=== PATIENT | female | born 1940 | race Caucasian/White ===

== ENCOUNTER → 2019-06-06 11:19 | Outpatient (BNVA) | payer MEDICARE, SELFPAY | PROVIDERS: Family Provider Family Medicine; PCP Family Medicine; Visit Provider Family Medicine | DX: E03.9 Hypothyroidism, unspecified (principal); I50.9 Heart failure, unspecified | CPT/HCPCS: 80162; 84443 ==

== ENCOUNTER → 2019-12-18 10:03 | Outpatient (BNVA) | payer MEDICARE, SELFPAY | PROVIDERS: Family Provider Internal Medicine; PCP Family Medicine; Visit Provider Family Medicine | DX: E03.9 Hypothyroidism, unspecified (principal); F41.1 Generalized anxiety disorder | CPT/HCPCS: 84443 ==

== ENCOUNTER → 2020-02-27 10:29 | Outpatient (BNVA) | payer MEDICARE, SELFPAY | PROVIDERS: Family Provider Internal Medicine; PCP Family Medicine; Visit Provider Family Medicine | DX: E03.9 Hypothyroidism, unspecified (principal); I50.9 Heart failure, unspecified | CPT/HCPCS: 84443 ==

== ENCOUNTER → 2020-04-03 08:55 | Outpatient (BNVA) | payer MEDICARE, SELFPAY | PROVIDERS: Family Provider Internal Medicine; PCP Family Medicine; Visit Provider Social Worker | DX: F41.1 Generalized anxiety disorder (principal) | CPT/HCPCS: 90834 ==

== ENCOUNTER → 2020-04-17 09:17 | Outpatient (BNVA) | payer MEDICARE, SELFPAY | PROVIDERS: Family Provider Internal Medicine; PCP Family Medicine; Visit Provider Social Worker | DX: F41.1 Generalized anxiety disorder (principal) | CPT/HCPCS: 90834 ==

== ENCOUNTER → 2020-05-01 09:07 | Outpatient (BNVA) | payer MEDICARE, SELFPAY | PROVIDERS: Family Provider Internal Medicine; PCP Family Medicine; Visit Provider Social Worker | DX: F41.1 Generalized anxiety disorder (principal) | CPT/HCPCS: 90834 ==

== ENCOUNTER → 2020-05-15 08:25 | Outpatient (BNVA) | payer MEDICARE, SELFPAY | PROVIDERS: Family Provider Internal Medicine; PCP Family Medicine; Visit Provider Social Worker | DX: F41.1 Generalized anxiety disorder (principal) | CPT/HCPCS: 90834 ==

== ENCOUNTER → 2020-05-29 08:05 | Outpatient (BNVA) | payer MEDICARE, SELFPAY | PROVIDERS: Family Provider Internal Medicine; PCP Family Medicine; Visit Provider Social Worker | DX: F41.1 Generalized anxiety disorder (principal) | CPT/HCPCS: 90834 ==

== ENCOUNTER → 2020-06-05 07:44 | Outpatient (BNVA) | payer MEDICARE, SELFPAY | PROVIDERS: Family Provider Internal Medicine; PCP Nurse Practitioner Adult Health; Visit Provider Social Worker | DX: F41.1 Generalized anxiety disorder (principal) | CPT/HCPCS: 90834 ==

== ENCOUNTER → 2020-06-12 08:22 | Outpatient (BNVA) | payer MEDICARE, SELFPAY | PROVIDERS: Family Provider Internal Medicine; PCP Nurse Practitioner Adult Health; Visit Provider Social Worker | DX: F41.1 Generalized anxiety disorder (principal) | CPT/HCPCS: 90834 ==

== ENCOUNTER → 2020-07-03 10:03 | Outpatient (BNVA) | payer MEDICARE, SELFPAY | PROVIDERS: Family Provider Internal Medicine; PCP Nurse Practitioner Adult Health; Visit Provider Social Worker | DX: F41.1 Generalized anxiety disorder (principal) | CPT/HCPCS: 90834 ==

== ENCOUNTER → 2020-08-14 12:41 | Outpatient (BNVA) | payer MEDICARE, SELFPAY | PROVIDERS: Family Provider Internal Medicine; PCP Nurse Practitioner Family; Visit Provider Social Worker | DX: F41.1 Generalized anxiety disorder (principal) | CPT/HCPCS: 90834 ==

== ENCOUNTER → 2020-09-04 11:38 | Outpatient (BNVA) | payer MEDICARE, SELFPAY | PROVIDERS: Family Provider Internal Medicine; PCP Nurse Practitioner Family; Visit Provider Social Worker | DX: F41.1 Generalized anxiety disorder (principal) | CPT/HCPCS: 90834 ==

== ENCOUNTER → 2020-09-11 08:09 | Outpatient (BNVA) | payer MEDICARE, SELFPAY | PROVIDERS: Family Provider Internal Medicine; PCP Nurse Practitioner Family; Visit Provider Social Worker | DX: F41.1 Generalized anxiety disorder (principal); F43.12 Post-traumatic stress disorder, chronic | CPT/HCPCS: 90834 ==

== ENCOUNTER → 2021-05-30 09:41 | Outpatient (BNVA) | payer MEDICARE, SELFPAY | PROVIDERS: Family Provider Internal Medicine; PCP Nurse Practitioner Family; Visit Provider Internal Medicine | DX: Z95.0 Presence of cardiac pacemaker (principal) ==

== ENCOUNTER → 2021-08-14 14:38 | Outpatient (BNVA) | payer MEDICARE, SELFPAY | PROVIDERS: Family Provider Internal Medicine; PCP Nurse Practitioner Family; Visit Provider Nurse Practitioner Family | DX: I48.91 Unspecified atrial fibrillation (principal); I11.0 Hypertensive heart disease with heart failure; I50.9 Heart failure, unspecified | CPT/HCPCS: 99214 ==

== ENCOUNTER → 2021-09-23 16:49 | Outpatient (BNVA) | payer MEDICARE, SELFPAY | PROVIDERS: PCP Nurse Practitioner; Visit Provider Nurse Practitioner | DX: E03.9 Hypothyroidism, unspecified (principal); I10 Essential (primary) hypertension; I48.91 Unspecified atrial fibrillation | CPT/HCPCS: 80053; 84443 ==

== ENCOUNTER → 2021-10-31 09:02 | Outpatient (BNVA) | payer MEDICARE, SELFPAY | PROVIDERS: PCP Nurse Practitioner; Visit Provider Internal Medicine | DX: I11.0 Hypertensive heart disease with heart failure (principal); I50.9 Heart failure, unspecified; F41.1 Generalized anxiety disorder; R00.2 Palpitations; E78.5 Hyperlipidemia, unspecified; Z95.0 Presence of cardiac pacemaker; I48.91 Unspecified atrial fibrillation; E03.9 Hypothyroidism, unspecified | CPT/HCPCS: 93280; 99213 ==

== ENCOUNTER 2021-11-20 18:40 | Inpatient (IN) | payer MEDICARE, SELFPAY ==
--- NOTE | 2021-11-20 18:50 | ECG_ITS ---
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 Measurements Intervals Harvey Rate: 72 P: MS: QRS: -55 QRSD: 113 T: 267 QT: 396 QTc: 435 Interpretive Statements ATRIAL FIBRILLATION LEFT ANTERIOR FASCICULAR BLOCK [QRS AXIS <= -45, QR IN I, RS IN II] POSSIBLE ANTERIOR MYOCARDIAL INFARCTION , OF INDETERMINATE AGE [30 ms Q WAVE IN V3/V4, OR R < 0.2 mV IN V4] ST DEVIATION AND MARKED T-WAVE ABNORMALITY, CONSIDER LATERAL ISCHEMIA [-0.5+ mV T-WAVE IN I/aVL/V5/V6] ST DEVIATION AND MODERATE T-WAVE ABNORMALITY, CONSIDER INFERIOR ISCHEMIA [-0.1+ mV T-WAVE IN II/aVF] Compared to ECG 02/27/2018 21:41:36 Left anterior fascicular block now present Myocardial infarct finding now present T-wave abnormality now present Possible ischemia now present Ventricular-paced complex(es) or rhythm no longer present Electronically Signed On 11-21-2021 15:38:23 CDT by Lai Orr M.D. [id number]
--- NOTE | 2021-11-20 18:51 | W.ED.GENADLT ---
HPI - General Adult General: Chief complaint: Fever Stated complaint: sob, possible covid Time Seen by Provider: 11/20/21 18:50 History of Present Illness: Patient is an 81-year-old female with a history of hypothyroidism, pacemaker dependence who presents the emergency room for concerns of fever and chills and sore throat. Patient tells me that her grandchildren were diagnosed with COVID on Wednesday. Since then, patient has been in contact with them. Patient reports symptoms for the last 2 to 3 days. Patient tells reports decreased p.o. intake. Patient denies any diarrhea, cough, shortness of breath, abdominal pain, melena medic easier. Patient denies any nausea or vomiting. Patient has no complaints at this time. Denies any active chest pain or shortness of breath. Onset:2-3 days ago Duration:ongoing Location:home Severity:moderate Associated symptoms: Deny chest pain, dyspnea, nausea, rash, palpitations or vomiting Review of Systems Const: Reports: body aches; Denies: fever(s) or chills Eyes: Denies: change in vision ENMT: Reports: throat pain; Denies: mouth pain Card: Denies: chest pain or palpitations Resp: Denies: dyspnea or non-productive cough GI: Reports: other (+decreased appetite); Denies: abdominal pain, nausea, vomiting or diarrhea : Denies: dysuria Musc: Denies: extremity pain Skin/Breast: Denies: rash or new lesions Neuro: Denies: weakness in extremities Psych: Reports: other (Normal mood) Ki/Lymph: Denies: easy bruising PFS ED PFSH: Medical History Afib Anxiety and depression CHF (congestive heart failure) Dyslipidemia Essential hypertension DINO (generalized anxiety disorder) History of cardiac pacemaker Hypothyroid Surgical History H/O knee surgery H/O: hysterectomy History of ankle surgery Family History Daughter Anesthesia complication CAD (coronary artery disease) Clotting disorder Mother Cancer Dementia Sister Cancer Denies family history of Diabetes Chronic kidney disease (CKD) Suicide Bleeding disorder Lung disease Stroke Social History Smoking and tobacco status: never smoked Second hand smoke exposure: No Smoking risk assessment/counseling performed?: No Alcohol intake: never Desire information about alcohol rehabilitation?: No Counseling given: No Desire information about substance/drug rehabilitation?: No Counseling given: No Adopted: No Caregiver/support person: Yes Household members: family Housing: House Marital status: / service: No Current occupational status: retired and disabled Current occupational exposures/hazards: No History of recent travel: No Current gender identity: Female Physical Exam Const: COMMON NORMALS: alert HENMT: COMMON NORMALS: atraumatic HEAD & SCALP: atraumatic MOUTH: moist mucous membranes not abnormal Eye: COMMON NORMALS: EOMs intact bilaterally and conjunctivae normal CONJUNCTIVA: Yes conjunctivae normal Neck/C-Spine: COMMON NORMALS: full ROM and supple Resp: COMMON NORMALS: normal respiratory effort and clear to auscultation bilaterally AUSCULTATION: clear to auscultation bilaterally Cardio: COMMON NORMALS: regular rate RATE: regular rate GI: COMMON NORMALS: Soft to palpation and non-tender PALPATION: Yes Soft to palpation Extremity: COMMON NORMALS: full ROM Neuro: SENSORIUM/ORIENTATION: Yes alert MOTOR EXAM: No Abnormal motor strength present and Other motor observations present (no focal motor deficits) Psych: COMMON NORMALS: speech normal SPEECH: Yes normal speech MOOD & AFFECT: Yes euthymic mood Course Vital Signs: Vital signs: Vital Signs Temperature 99.3 F 11/20/21 18:54 Pulse Rate 81 11/20/21 18:54 Respiratory Rate 20 H 11/20/21 18:54 Blood Pressure 146/75 11/20/21 18:54 Pulse Oximetry 93 11/20/21 18:54 Oxygen Delivery Me thod 11/20/21 18:54 [facility] - General Adult Medical Decision Making Patient is an 81-year-old female with a history of hypothyroidism, pacemaker dependence who presents the emergency room for concerns of fever and chills and sore throat. Physical exam, patient is hemodynamically stable, afebrile. He has no signs of respiratory distress or coarse breath sounds. Initial EKG showed multiple T wave versions in V3 to V6. I discussed these findings with Dr. Orr at 8:53 PM who tells me that because patient has a paced rhythm without any active chest pain, this this is unlikely to be ischemic changes. However patient has delta troponin of 16. He received aspirin in the emergency room. Discussed EKG changes with patient and recommended admission. Patient agrees with plan. Disposition: admission Lab Data : 11/20/21 19:11/20/21: Laboratory Results WBC 8.1 10^3/uL (4.0-10.0) 11/20/21: RBC 3.70 10^6/uL (4.1-5.3) L 11/20/21: Hgb 12.4 g/dL (11.5-15.3) 11/20/21: Hct 37.6 % (37.0-47.0) 11/20/21: MCV 101.6 fl (81-99) H 11/20/21: MCH 33.5 pg (28.0-34.0) 11/20/21: MCHC 33.0 g/dL (30.0-36.0) 11/20/21: RDW 12.9 % (12.1-15.1) 11/20/21: Plt Count 130 10^3/cmm (130-400) 11/20/21: MPV 11.9 fL (7.4-10.4) H 11/20/21: Neut % (Auto) 87.2 % 11/20/21: Lymph % (Auto) 5.8 % 11/20/21: Early % (Auto) 6.4 % 11/20/21: Eos % (Auto) 0.2 % 11/20/21: Baso % (Auto) 0.2 % 11/20/21: Neut # (Auto) 7.03 10^3/uL (1.8-7.7) 11/20/21: Lymph # (Auto) 0.5 10^3/uL (0.8-4.8) L 11/20/21: Early # (Auto) 0.5 10^3/uL (0.2-0.9) 11/20/21: Eos # (Auto) 0.0 10^3/uL (0.0-0.8) 11/20/21: Baso # (Auto) 0.0 10^3/uL (0.0-0.1) 11/20/21 19:25 Nucleated RBC % (auto) 0 % 11/20/21 19:25 Nucleated RBCs # 0.0 /100WBC 11/20/21 19:25 Sodium 137 mmol/L (136-145) 11/20/21 19:25 Potassium 4.0 mmol/L (3.5-5.1) 11/20/21 19:25 Chloride 104 mmol/L (98-107) 11/20/21 19:25 Carbon Dioxide 22 mmol/L (22-29) 11/20/21 19:25 Anion Gap 15.0 (5-19) 11/20/21 19:25 BUN 10 mg/dL (8-23) 11/20/21 19:25 Creatinine 0.6 mg/dL (0.5-0.9) 11/20/21 19:25 GFR Calculation Not Reportable 11/20/21 19:25 Glucose 129 mg/dL (65-115) H 11/20/21 19:25 Calculated Osmolality 285 mOsm/kg (285-295) 11/20/21 19:25 Calcium 8.7 mg/dL (8.5-10.5) 11/20/21 19:25 Troponin T Baseline 39 ng/L (0-10) H 11/20/21 19:25 Troponin T 120 Minute 54.66 ng/L (0-10) H 11/20/21 20:55 Delta Troponin T 15.66 ABS# (0-10) H* 11/20/21 20:55 NT-Pro-B Natriuret Pep 3308 pg/mL (0-450) H 11/20/21 19:25 Discharge Plan Discharge Patient Disposition: Admitted As Inpatient Clinical Impression: Sore throat, COVID, Elevated troponin, Abnormal EKG Condition: Stable Discharge Diet: Advance as tolerated Discharge Activity: Increase activity as tolerated Coding Level of Care Code ED Lead Network Architect for Chg Fwd Exam Comprehensive
[2021-11-20 18:54] VITALS: BP 146/75; PULSE 81; RESP 20; TEMP 37.4; O2SAT 93; BMI 26.7
[2021-11-20 20:04] LABS: Basophils % 0.2 %; Eosinophils % 0.2 %; Hematocrit 37.6 % (37.0-47.0); Hemoglobin 12.4 g/dL (11.5-15.3); Lymphocytes # 0.5 10^3/uL (0.8-4.8); Lymphocytes % 5.8 %; Mean Corpuscular Hemoglobin 33.5 pg (28.0-34.0); Mean Corpuscular Volume 101.6 fl (81-99); Mean Platelet Volume 11.9 fL (7.4-10.4); Monocytes # 0.5 10^3/uL (0.2-0.9); Monocytes % 6.4 %; Neutrophils # 7.03 10^3/uL (1.8-7.7); Neutrophils % 87.2 %; Nucleated Red Blood Cells % 0 %; Platelet Count 130 10^3/cmm (130-400); Red Cell Distribution Width 12.9 % (12.1-15.1); White Blood Count 8.1 10^3/uL (4.0-10.0)
[2021-11-20 20:07] LABS: Troponin(5th) Baseline 39 ng/L (0-10)
[2021-11-20 20:14] LABS: Blood Urea Nitrogen 10 mg/dL (8-23); Calcium 8.7 mg/dL (8.5-10.5); Carbon Dioxide 22 mmol/L (22-29); Chloride 104 mmol/L (98-107); Glucose 129 mg/dL (65-115); NT Pro B Type Natriuretic Pept 3308 pg/mL (0-450); Osmolality Calculated 285 mOsm/kg (285-295); Sodium 137 mmol/L (136-145)
[2021-11-20] MEDS: acetaminophen 500 mg Tablet PO (20:20)
[2021-11-20] MEDS: sodium chloride 0.9% 500 ML IV (20:20)
--- NOTE | 2021-11-20 20:50 | ECG_ITS ---
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 Measurements Intervals Mcloud Rate: 79 P: LA: QRS: -52 QRSD: 109 T: 254 QT: 415 QTc: 477 Interpretive Statements ATRIAL FIBRILLATION LEFT AXIS DEVIATION [QRS AXIS < -30] POSSIBLE ANTERIOR MYOCARDIAL INFARCTION , OF INDETERMINATE AGE [30 ms Q WAVE IN V3/V4, OR R < 0.2 mV IN V4] MARKED T-WAVE ABNORMALITY, CONSIDER LATERAL ISCHEMIA [-0.5+ mV T-WAVE IN I/aVL/V5/V6] MODERATE T-WAVE ABNORMALITY, CONSIDER INFERIOR ISCHEMIA [-0.1+ mV T-WAVE IN II/aVF] Compared to ECG 11/20/2021 19:24:47 Left-axis deviation now present Left anterior fascicular block no longer present Myocardial infarct finding still present T-wave abnormality still present Possible ischemia still present Electronically Signed On 11-21-2021 15:52:51 CDT by Lai Orr M.D. [id number]
[2021-11-20 21:17] LABS: Troponin 5 2HR 54.66 ng/L (0-10)
[2021-11-20 21:26] LABS: Troponin 5 2HR Delta 15.66 ABS# (0-10)
--- NOTE | 2021-11-20 21:29 | XRR_ITS ---
PROCEDURE INFORMATION: Exam: XR Chest Exam date and time: 11/20/2021 9:39 PM Age: 81 years old Clinical indication: Other: Troponin elevation TECHNIQUE: Imaging protocol: Radiologic exam of the chest. Views: 1 view. COMPARISON: CR Chest 1 [place] [id number] 02/27/2018 7:44 PM FINDINGS: Tubes, catheters and devices: A sequential bipolar pacemaker is placed via the left subclavian vein. Lungs: Partially calcified granulomas are seen in the lower hemithoraces bilaterally. Pleural spaces: Unremarkable. No pleural effusion. No pneumothorax. Heart/Mediastinum: Cardiac silhouette is at the upper limits of normal. There are no findings to suggest cardiac decompensation. Bones/joints: There is an S-shaped curvature of the axial skeleton. XR/XR chest 1V portable [id number] IMPRESSION: 1. Mild prominence of the cardiac silhouette without evidence of acute cardiac decompensation. 2. Partially calcified granulomas seen in lower hemithoraces.
--- NOTE | 2021-11-20 22:03 | PM.HP ---
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 Patient is stating that she is under a lot of stress because they are in the process of custody of the grand children, her grandchildren came back from their mother's home 2 days ago however today they received a phone call that someone tested positive, grandchildren hence tested themselves at home, they are positive with COVID-19, along her family she went out today to get some wipes and cleaning supplies. While they were outside she started experiencing shortness of breath, felt extremely dehydrated and at that time temperature was 100.3. That really made her worried about her COVID-19 related symptoms hence decided to come to the hospital. She is not vaccinated for COVID-19, she has not tested herself. In the ER she is on room air COVID PCR test is pending I have been asked to admit because of delta troponin 15 No active chest pain She has significant T wave inversion anterolateral leads, has a pacemaker She had pacemaker interrogation done on 07/11 She follows up with Dr. Brown She had a history of atrial fibrillation not on anticoagulation because of GI bleed, history of congestive heart failure, her pacemaker was put in [place] Patient is stating that she was told that she had blockage in her LAD about 50% which has cleared up with her lifestyle modifications and weight loss She is not a good historian She was telling me that a nuclear test was done which showed 50% blockage in LAD and then we did the angiogram there was minimal blockage Review of Systems Const: Reports: fever(s) and fatigue Eyes: Denies: change in vision ENMT: Denies: throat pain Card: Reports: irregular heart rhythm and dyspnea on exertion; Denies: chest pain Resp: Reports: dyspnea GI: Denies: abdominal pain : Denies: flank pain Musc: Denies: neck pain Skin/Breast: Denies: rash Neuro: Denies: headache(s) Psych: Reports: anxiety Endo: Denies: polyuria Ki/Lymph: Denies: easy bruising All/Imm: Denies: urticaria Medications/Allergies Home Medications Medication Instructions Recorded Confirmed Last Taken Type Synthroid 88 mcg tablet 88 mcg PO DAILY #90 tabs 09/24/21 10/31/21 Unknown Rx (levothyroxine) metoprolol tartrate 25 mg tablet 37.5 mg PO BID 90 days #270 tabs 10/20/21 10/31/21 Unknown Rx acetaminophen 500 mg tablet 500 mg PO Q6H PRN pain 5 days #20 11/20/21 Unknown Rx tabs calcium carbonate 1,000 1 tab PO TID PRN abdominal pain 7 11/20/21 Unknown Rx mg-simethicone 60 mg chewable days #21 tabs tablet (Maalox Advanced) famotidine 20 mg tablet (Pepcid) 20 mg PO BID PRN abdominal pain 10 11/20/21 Unknown Rx days #20 tabs nirmatrelvir 300 mg (150 mg x See Rx Instructions PO .COMPLEX 11/20/21 Unknown Rx 2)-ritonavir 100 mg tablet (EUA) #30 tabs (Paxlovid 300 mg () ondansetron 4 mg disintegrating 4 mg PO TID PRN nausea and 11/20/21 Unknown Rx tablet vomiting 4 days #12 tabs Allergies Allergy/AdvReac Type Severity Reaction Status Date / Time apixaban [From Eliquis] AdvReac Mild unknown Verified 10/31/21 09:11 gentamicin AdvReac Mild unknown Verified 10/31/21 09:11 tramadol [From Ultram] AdvReac Mild all side Verified 10/31/21 09:11 effects warfarin [From Coumadin] AdvReac Mild unknown Verified 10/31/21 09:11 PFSH Acute PFSH: Medical History Afib Anxiety and depression CHF (congestive heart failure) Dyslipidemia Essential hypertension DINO (generalized anxiety disorder) History of cardiac pacemaker Hypothyroid Surgical History H/O knee surgery H/O: hysterectomy History of ankle surgery Family History Daughter Anesthesia complication CAD (coronary artery disease) Clotting disorder Mother Cancer Dementia Sister Cancer Denies family history of Diabetes Chronic kidney disease (CKD) Suicide Bleeding disorder Lung disease Stroke Social History Smoking and tobacco status: never smoked Second hand smoke exposure: No Smoking risk assessment/counseling performed?: No Alcohol intake: never Desire information about alcohol rehabilitation?: No Counseling given: No Desire information about substance/drug rehabilitation?: No Counseling given: No Adopted: No Caregiver/support person: Yes Household members: family Housing: House Marital status: / service: No Current occupational status: retired and disabled Current occupational exposures/hazards: No History of recent travel: No Current gender identity: Female Vitals/I&O/Wt Last Vital Signs Temp 99.3 F 11/20/21 18:54 Pulse 81 11/20/21 18:54 Resp 20 H 11/20/21 18:54 BP 146/75 11/20/21 18:54 Pulse Ox 93 11/20/21 18:54 O2 Del Method 11/20/21 18:54 11/20/21 11/20/21 11/20/21 06:59 14:59 22:59 Intake Total 500 / 500 Balance 500 / 500 Weight last 48 hrs Weight 62.142 kg Physical Exam Narrative: Very pleasant cooperative female Currently on room air saturating 95% No active chest pain S1, S2 variable Abdomen soft No signs of edema Abdomen soft No audible stridor or wheezing Awake and alert Slightly dehydrated No active chest pain Eomi, PERRLA Appropriate mood and affect No sign of cellulitis Data : 11/20/21 19:25 11/20/21 19:25 A&P Assessment and plan (1) Elevated troponin: Status: Acute (2) Abnormal EKG: Status: Acute (3) Dyslipidemia: Status: Acute (4) History of cardiac pacemaker: Status: Chronic (5) Essential hypertension: Status: Chronic (6) Afib: Status: Chronic (7) DINO (generalized anxiety disorder): Status: Chronic (8) Hypothyroid: Status: Chronic Qualifiers: Hypothyroidism type: acquired Qualified Code(s): E03.9 - Hypothyroidism, unspecified (9) CHF (congestive heart failure): Status: Chronic Plan Generalized weakness Low-grade fever Shortness of breath Her BNP is high at Clinically dehydrated No active chest pain Recent TSH was normal Delta troponin 15 Hemodynamically stable T wave inversion noted in anterolateral leads Paced rhythm Serial troponin and EKG for now A. fib without RVR Not a candidate of anticoagulation due to history of GI bleed Patient has been exposed to family members who tested positive for COVID-19 Currently on room air No acute shortness of breath DuoNeb every 4 as needed Rule out COVID X-ray does not show signs of CHF or typical groundglass opacities related to COVID-19 I will do echo in the morning to see wall motion abnormality Patient is full code DVT prophylaxis Lovenox Cardiac diet Attestations Medical Necessity Statement*: Anticipating discharge within 48 hours if clinically stable Time Spent in Patient Care: 40 Coding Level of Care Code 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
[2021-11-20 22:04] LABS: Adenovirus Not Detected (NOT DETECT); Chlamydia Pneumoniae Not Detected (NOT DETECT); Coronavirus 229E,HKU1,NL63,OC4 Not Detected (NOT DETECT); Human Metapneumovirus Not Detected (NOT DETECT); Human Rhinovirus/Enterovirus Not Detected (NOT DETECT); Influenza A Not Detected (NOT DETECT); Influenza A H1 Not Detected (NOT DETECT); Influenza A H1-2009 Not Detected (NOT DETECT); Influenza A H3 Not Detected (NOT DETECT); Influenza B Not Detected (NOT DETECT); Mycoplasma Pneumoniae Not Detected (NOT DETECT); Parainfluenza Virus Type 1 Not Detected (NOT DETECT); Parainfluenza Virus Type 2 Not Detected (NOT DETECT); Parainfluenza Virus Type 3 Not Detected (NOT DETECT); Parainfluenza Virus Type 4 Not Detected (NOT DETECT); Respiratory Syncytial Virus A Not Detected (NOT DETECT); Respiratory Syncytial Virus B Not Detected (NOT DETECT); SARS-COV-2 Detected (NOT DETECT)
[2021-11-20 22:59] VITALS: BP 113/69; PULSE 78; RESP 18; O2SAT 92
[2021-11-20 23:13] LABS: Procalcitonin 0.38 ng/mL (0-0.5)
--- NOTE | 2021-11-20 23:24 | USCV_ITS ---
Luna Beltran Age: 81 Gender: F : 1940 Exam Date: 11/21/2021 02:11 Ordering Phys: Yamilet Cooper MD Technologist: JESSICA [place] [facility] [place]: NSTEMI; pacer since 2015 BP: 113 / 69 HR: 78 Rhythm: Atrial fibrillation Technical Quality: Adequate MEASUREMENTS (Male / Female) Normal Values 2D ECHO LV Diastolic Diameter PLAX 3.5 cm 4.2 - 5.9 / 3.9 - 5.3 cm LV Systolic Diameter PLAX 2.2 cm IVS Diastolic Thickness 1.3 cm 0.6 - 1.0 / 0.6 - 0.9 cm IVS Systolic Thickness 1.8 cm LVPW Diastolic Thickness 1.3 cm 0.6 - 1.0 / 0.6 - 0.9 cm LVPW Systolic Thickness 1.4 cm LVOT Diameter 1.9 cm LV Ejection Fraction 2D Teich 67.1 % LV Ejection Fraction MOD 2C 65.8 % LV Ejection Fraction 2C AL 65.2 % LA Diameter 4.5 cm LA Width 4.4 cm LA Height 5.8 cm RA Width 4.3 cm RA Height 5.1 cm Aorta at Sinotubular Diameter 2.6 cm IVC Diameter 2.0 cm M-MODE Aortic Annulus Diameter 2.6 cm LA Ao Ratio MM 1.8 MV E Point Septal Separation 0.6 cm DOPPLER AV Peak Velocity 92.0 cm/s LVOT Peak Velocity 58.0 cm/s AV Area Cont Eq vti 1.9 cm squared AV Area Cont Eq pk 1.7 cm squared MV Area PHT 3.5 cm squared Mitral E to A Ratio 228.4 MV E' Velocity 64.5 cm/s Mitral E to MV E' Ratio 10.7 Mitral E to LV E' Lateral Ratio 7.8 Mitral E to LV E' Septal Ratio 17.0 TR Peak Velocity 303.8 cm/s TR Peak Gradient 36.9 mmHg TV Peak E Velocity 67.0 cm/s Right Atrial Pressure 8.0 mmHg Pulmonary Artery Systolic Pressu 44.9 mmHg PV Peak Velocity 93.0 cm/s RV Acceleration Time 0.1 s RV Ejection Time 0.3 s RV AcT/ET 0.3 FINDINGS Left Ventricle Normal LV size and ejection fraction of 65%. Mild concentric left tubular hypertrophy. Mild hypokinesia of the apical septum and somewhat dyskinetic apical inferior wall segments. Right Ventricle The right ventricle is normal in size and function. Right Atrium Mildly increased right atrial size. Pacemaker wire noted Left Atrium Mildly increased left atrial size. Pacemaker wire noted Mitral Valve Thickened mitral valve. Mild mitral annular calcification. Possibly severe eccentric mitral valve regurgitation. Aortic Valve Thickened aortic valve. Tricuspid Valve [id number] tricuspid valve regurgitation. Estimated pulmonary artery peak systolic pressure 45 mmHg Pulmonic Valve Trace pulmonary valve regurgitation. Pericardium Normal pericardium without effusion. Aorta Normal aortic annulus size. IVC Dilated IVC with decreased respiratory variation. CONCLUSIONS Normal LV size and ejection fraction of 65%. Mild concentric left tubular hypertrophy. Mild hypokinesia of the apical septum and somewhat dyskinetic apical inferior wall segments. Mild biatrial enlargementThickened mitral valve. Mild mitral annular calcification. Possibly severe eccentric mitral valve regurgitation. Smssgevm-[id number] tricuspid valve regurgitation. Estimated pulmonary artery peak systolic pressure 45 mmHg. Thickened aortic valve. Trace pulmonary valve regurgitation. Pacemaker wire in the right atrium and right ventricle No similar previous studies are available for comparison Dr Lai Orr MD FAC (Electronically Signed) Final Date: 21 November 2021 06:45 S
[2021-11-21] VITALS (9 sets, daily range): BP systolic 114–128; BP diastolic 60–76; PULSE 60–75; RESP 15–17; TEMP 36.8–37.3; O2SAT 92–97
[2021-11-21] MEDS: sodium chloride 0.9% 1,000 ML 75 ML IV ×2 (00:07→15:22)
[2021-11-21] MEDS: enoxaparin 40 mg/0.4 mL Syringe SUBCUT (00:12)
[2021-11-21 04:59] LABS: Vitamin B12 253 pg/mL (232-1245)
[2021-11-21] MEDS: levothyroxine 88 mcg Tablet PO (05:00)
[2021-11-21 06:25] LABS: Anion Gap 15.1 (5-19); Basophils % 0.5 %; Blood Urea Nitrogen 11 mg/dL (8-23); C Reactive Protein 16.3 mg/L (0.0-4.9); Calcium 8.6 mg/dL (8.5-10.5); Carbon Dioxide 22 mmol/L (22-29); Chloride 106 mmol/L (98-107); Eosinophils % 0.4 %; Glucose 82 mg/dL (65-115); Hematocrit 41.9 % (37.0-47.0); Hemoglobin 12.7 g/dL (11.5-15.3); Lymphocytes # 0.9 10^3/uL (0.8-4.8); Lymphocytes % 16.3 %; Mean Corpuscular HGB Conc 30.3 g/dL (30.0-36.0); Mean Corpuscular Hemoglobin 33.8 pg (28.0-34.0); Mean Corpuscular Volume 111.4 fl (81-99); Mean Platelet Volume 11.4 fL (7.4-10.4); Monocytes # 0.6 10^3/uL (0.2-0.9); Monocytes % 9.8 %; Neutrophils # 4.11 10^3/uL (1.8-7.7); Neutrophils % 72.8 %; Nucleated Red Blood Cells % 0 %; Osmolality Calculated 286 mOsm/kg (285-295); Platelet Count 120 10^3/cmm (130-400); Potassium 4.1 mmol/L (3.5-5.1); Red Blood Count 3.76 10^6/uL (4.1-5.3); Sodium 139 mmol/L (136-145); White Blood Count 5.6 10^3/uL (4.0-10.0)
--- NOTE | 2021-11-21 07:17 | PM.CONSULT ---
Providers/Reason For Consult Consulting Physician/Specialty*: ALEXIA Orr MD/cardiology Reason for Consult*: Patient with elevated troponin T Requesting Physician: Dr. Cooper Attending Physician: Yamilet Cooper MD Primary Care Provider: CARMEN Thompson History of Present Illness History of Present Illness Luna Beltran is a 81 year old female is admitted to the hospital through the emergency room, where she presented with upper respiratory infection symptoms. She was recently exposed to COVID-19. She has been complaining of fever, chills and generalized weakness. She also had nausea and vomiting. She has a history of atherosclerotic heart diseas, chronic atrial fibrillation and permanent pacer implantation. She had an EKG in the emergency room which revealed diffuse nonspecific T wave changes. Subsequent to troponin T was found to be elevated with a significant delta. She is admitted to hospital for further evaluation management. This patient is known to have atherosclerotic heart disease by coronary angiogram. She had an angiogram in [place], few years ago. She was told to have 50% blockage in the arteries. She never had any coronary interventions. She also had a permanent pacer implantation for symptomatic bradycardia in [place]. Currently she is being followed by Dr. Brown at [facility]. At the time of my examination, patient has no chest pain. She mainly is complaining of cough and uneasiness. Her oxygen saturation is within normal limits. She is also remaining afebrile in the hospital. She never had any chest pain. She may have some shortness of breath. No orthopnea or PND. She is known to have high blood pressure, dyslipidemia and hypothyroidism. She has not had any recent cardiac evaluations. Review of Systems Narrative: CONSTITUTIONAL: Low-grade fever and chills EYES: No blurring of vision or other visual disturbances lately. ENT: Has some hoarseness of voice. No auditory disturbances. CARDIOVASCULAR: As mentioned above. RESPIRATORY: May have some shortness of breath and cough GASTROINTESTINAL: Nausea and vomiting as mentioned above. GENITOURINARY: No dysuria or hematuria. INTEGUMENTARY: No skin rashes or history of skin cancer. NEURO: No history for CVA. PSYCHIATRIC: No history of psychosis or major depression. HEMATOLOGIC: No bleeding disorders or significant anemia. ENDOCRINE: History of hypothyroidism as mentioned above. MUSCULOSKELETAL: No recent joint pain or swelling. ALLERGY/IMMUNOLOGY: As mentioned above. Medications/Allergies Home Medications Medication Instructions Recorded Confirmed Last Taken Type Synthroid 88 mcg tablet 88 mcg PO DAILY #90 tabs 09/24/21 11/21/21 11/20/21 06:00 Rx (levothyroxine) metoprolol tartrate 25 mg tablet 37.5 mg PO BID 90 days #270 tabs 10/20/21 11/21/21 11/20/21 09:00 Rx acetaminophen 500 mg tablet 500 mg PO Q6H PRN pain 5 days #20 11/20/21 Unknown Rx tabs calcium carbonate 1,000 1 tab PO TID PRN abdominal pain 7 11/20/21 Unknown Rx mg-simethicone 60 mg chewable days #21 tabs tablet (Maalox Advanced) famotidine 20 mg tablet (Pepcid) 20 mg PO BID PRN abdominal pain 10 11/20/21 Unknown Rx days #20 tabs nirmatrelvir 300 mg (150 mg x See Rx Instructions PO .COMPLEX 11/20/21 Unknown Rx 2)-ritonavir 100 mg tablet (EUA) #30 tabs (Paxlovid 300 mg () ondansetron 4 mg disintegrating 4 mg PO TID PRN nausea and 11/20/21 Unknown Rx tablet vomiting 4 days #12 tabs Allergies Allergy/AdvReac Type Severity Reaction Status Date / Time apixaban [From Eliquis] AdvReac Mild unknown Verified 10/31/21 09:11 gentamicin AdvReac Mild unknown Verified 10/31/21 09:11 tramadol [From Ultram] AdvReac Mild all side Verified 10/31/21 09:11 effects warfarin [From Coumadin] AdvReac Mild unknown Verified 10/31/21 09:11 Current Medications Generic Name Dose Route Start Last Admin Trade Name Freq PRN Reason Stop Dose Admin Enoxaparin Sodium 40 mg 11/20/21 23:24 11/21/21 00:12 Enoxaparin 40 Mg/0.4 Ml Syringe SUBCUT 40 mg Q24H LEONARDA Administration Sodium Chloride 1,000 mls @ 75 mls/hr 11/20/21 23:24 11/21/21 00:07 Sodium Chloride 0.9% IV 75 mls/hr .[id number] LEONARDA Administration Levothyroxine Sodium 88 mcg 11/21/21 06:00 11/21/21 05:00 Levothyroxine 88 Mcg Tablet PO 88 mcg QAM LEONARDA Administration PFSH Acute PFSH: Medical History Afib Anxiety and depression CHF (congestive heart failure) Dyslipidemia Essential hypertension DINO (generalized anxiety disorder) History of cardiac pacemaker Hypothyroid Surgical History H/O knee surgery H/O: hysterectomy History of ankle surgery Family History Daughter Anesthesia complication CAD (coronary artery disease) Clotting disorder Mother Cancer Dementia Sister Cancer Denies family history of Diabetes Chronic kidney disease (CKD) Suicide Bleeding disorder Lung disease Stroke Social History Smoking and tobacco status: never smoked Second hand smoke exposure: No Smoking risk assessment/counseling performed?: No Alcohol intake: never Desire information about alcohol rehabilitation?: No Counseling given: No Desire information about substance/drug rehabilitation?: No Counseling given: No Adopted: No Caregiver/support person: Yes Household members: family Housing: House Marital status: / service: No Current occupational status: retired and disabled Current occupational exposures/hazards: No History of recent travel: No Current gender identity: Female Vitals/I&O/Wt Last Vital Signs Temp 98.2 F 11/21/21 04:18 Pulse 67 11/21/21 04:18 Resp 15 11/21/21 04:18 BP 116/76 11/21/21 04:18 Pulse Ox 97 11/21/21 04:18 O2 Del Method 11/21/21 04:18 11/20/21 11/21/21 11/21/21 22:59 06:59 14:59 Intake Total 500 / 500 Balance 500 / 500 Weight last 48 hrs Weight 137 lb Physical Exam Narrative: GENERAL: The patient is alert and oriented times three. Not in any acute distress. HEENT: Minimal pallor. No icterus or lymphadenopathy.Oral cavity: There are no mucous membrane lesions. NECK: Trachea appears to be central. No masses noted. No JVD or thyromegaly appreciated. RESPIRATORY: Chest is symmetrical. No intercostals muscle retraction or any accessory muscle activation. There is no chest wall tenderness. Breath sounds are heard bilaterally. No rales or rhonchi heard. No evidence of any consolidation. BREASTS: Deferred. HEART: The first heart sound is variable. Second heart sound is normal. No S3 or S4. No significant murmurs. No pericardial rub ABDOMEN: No vessel pulsations or distention. No tenderness. No organomegaly appreciated. Bowel sounds are normally heard. : Deferred. RECTAL: Deferred. LYMPHATIC: No lymphadenopathy noted in the neck. EXTREMITIES: No edema or cyanosis. No clubbing. MUSCULOSKELETAL: No acute joint deformities or swelling SKIN: There are no significant rashes or ecchymosis NEUROPSYCHIATRIC: The patient is alert and oriented x3. Appears to be in a good mood. No tremors or rigidity noted. Data : 11/21/21 05:19 11/21/21 05:19 Other Labs: Laboratory Last Values WBC 5.6 10^3/uL (4.0-10.0) 11/21/21 05:19 Corrected WBC Cancelled 11/21/21 01:48 RBC 3.76 10^6/uL (4.1-5.3) L 11/21/21 05:19 Hgb 12.7 g/dL (11.5-15.3) 11/21/21 05:19 Hct 41.9 % (37.0-47.0) 11/21/21 05:19 MCV 111.4 fl (81-99) H D 11/21/21 05:19 MCH 33.8 pg (28.0-34.0) 11/21/21 05:19 MCHC 30.3 g/dL (30.0-36.0) D 11/21/21 05:19 RDW 13.0 % (12.1-15.1) 11/21/21 05:19 Plt Count 120 10^3/cmm (130-400) L 11/21/21 05:19 MPV 11.4 fL (7.4-10.4) H 11/21/21 05:19 Gran % Cancelled 11/21/21 01:48 Neut % (Auto) 72.8 % 11/21/21 05:19 Lymph % (Auto) 16.3 % 11/21/21 05:19 [place] % (Auto) 9.8 % 11/21/21 05:19 Eos % (Auto) 0.4 % 11/21/21 05:19 Baso % (Auto) 0.5 % 11/21/21 05:19 Neut # (Auto) 4.11 10^3/uL (1.8-7.7) 11/21/21 05:19 Lymph # (Auto) 0.9 10^3/uL (0.8-4.8) 11/21/21 05:19 [place] # (Auto) 0.6 10^3/uL (0.2-0.9) 11/21/21 05:19 Eos # (Auto) 0.0 10^3/uL (0.0-0.8) 11/21/21 05:19 Baso # (Auto) 0.0 10^3/uL (0.0-0.1) 11/21/21 05:19 Absolute Gran (auto) Cancelled 11/21/21 01:48 Nucleated RBC % (auto) 0 % 11/21/21 05:19 Nucleated RBCs # 0.0 /100WBC 11/21/21 05:19 D-Dimer 0.70 ug/mIFEU (0-0.59) H 11/20/21 00:15 Sodium 139 mmol/L (136-145) 11/21/21 05:19 Potassium 4.1 mmol/L (3.5-5.1) 11/21/21 05:19 Chloride 106 mmol/L (98-107) 11/21/21 05:19 Carbon Dioxide 22 mmol/L (22-29) 11/21/21 05:19 Anion Gap 15.1 (5-19) 11/21/21 05:19 BUN 11 mg/dL (8-23) 11/21/21 05:19 Creatinine 0.6 mg/dL (0.5-0.9) 11/21/21 05:19 GFR Calculation Not Reportable 11/21/21 05:19 Glucose 82 mg/dL (65-115) 11/21/21 05:19 Calculated Osmolality 286 mOsm/kg (285-295) 11/21/21 05:19 Calcium 8.6 mg/dL (8.5-10.5) 11/21/21 05:19 Magnesium 2.0 mg/dL (1.7-2.3) 11/21/21 05:19 Troponin T Baseline 39 ng/L (0-10) H 11/20/21 19:25 Troponin T 120 Minute 54.66 ng/L (0-10) H 11/20/21 20:55 Delta Troponin T 15.66 ABS# (0-10) H* 11/20/21 20:55 C-Reactive Protein 16.3 mg/L (0.0-4.9) H 11/21/21 05:19 NT-Pro-B Natriuret Pep 3308 pg/mL (0-450) H 11/20/21 19:25 Vitamin B12 253 pg/mL (232-1245) 11/20/21 20:55 Procalcitonin 0.38 ng/mL (0-0.5) 11/20/21 20:55 Coronavirus 229E (PCR) Not detected (NOT DETECT) 11/20/21 19:25 SARS-CoV-2 (PCR) Detected (NOT DETECT) A 11/20/21 19:25 Echo: My impression: Echocardiogram done on 11/20/2021 normal LV size and ejection fraction of 65%.? Mild concentric ?left tubular hypertrophy. ? Mild hypokinesia of the apical septum and somewhat dyskinetic ?apical inferior wall segments. ?Mild biatrial enlargementThickened mitral valve. ?Mild mitral annular calcification.? ?Possibly severe eccentric mitral valve regurgitation. ?Oppnvutl-qw-[id number] tricuspid valve regurgitation.? Estimated ?pulmonary artery peak systolic pressure 45 mmHg. ?Thickened aortic valve. ?Trace pulmonary valve regurgitation. ?Pacemaker wire in the right atrium and right ventricle ?No similar previous studies are available for comparison EKG 1: My Interpretation: The EKG showed atrial fibrillation with a ventricular response rate of 70 bpm. Poor R wave progression. T inversions in lead V3 to V6, II, III and aVF. Nonspecific ST changes. EKG computer-generated impression: Chest X-Ray 11/20/21 21:29 IMPRESSION: 1. Mild prominence of the cardiac silhouette without evidence of acute cardiac decompensation. 2. Partially calcified granulomas seen in lower hemithoraces. A&P Assessment and plan (1) Non-ST elevation myocardial infarction (NSTEMI), subendocardial infarction, initial episode of care: Patient is a clinical features are consistent with a non-ST elevation myocardial infarction. Elevated troponin T, abnormal EKG and echocardiogram-all are suggesting an acute non-ST elevation myocardial infarction. Currently she seems to be stable hemodynamically. Status: Acute (2) COVID: Patient is tested positive for COVID-19. She does not seem to have pneumonia. She is afebrile. Status: Acute (3) Atherosclerosis of coronary artery of [place] heart without angina pectoris: Is known to have atherosclerotic heart disease by angiogram in the past. She had only moderate coronary disease, based on the patient's report Status: Acute (4) Essential hypertension: Patient currently is normotensive. May continue on the current medications. Status: Chronic (5) Dyslipidemia: Her latest lipid profile is not known. I may [place] lipid profile on the blood in the lab. She may be started on Lipitor 40 mg p.o. daily. Status: Acute (6) Hypothyroid: Clinically seems to be euthyroid. Status: Chronic Qualifiers: Hypothyroidism type: acquired Qualified Code(s): E03.9 - Hypothyroidism, unspecified (7) Chronic atrial fibrillation: PrimaryPatient days with a controlled ventricular response rate. Apparently she cannot tolerate oral anticoagulation. Status: Acute (8) Presence of permanent cardiac pacemaker: Patient's pacemaker function was found to be appropriate. Continue on the current follow-up schedule Status: Acute Plan Patient is started on therapeutic dose of Lovenox, p.o. Plavix, aspirin, beta-mak and statin. She needs to be closely watched on telemetry. Patient may benefit from a cardiac catheterization to further evaluate the coronary status and then decide on further management. Since she is hemodynamically stable, this need not to be done urgently. Based on the clinical progress, further recommendations will be made Consult Attestations Medical Necessity Statement: Patient requires continued hospital stay for close monitoring and further management Coding Level of Care Code Acute Fermentation Manager for Chg Fwd History Detailed Medical Decision Making High Complexity Diagnoses Non-ST elevation myocardial infarction (NSTEMI), subendocardial infarction, initial episode of care I21.4 COVID U07.1 Atherosclerosis of coronary artery of [place] heart without angina pectoris I25.10 Essential hypertension I10 Dyslipidemia E78.5 Hypothyroid E03.9 Hypothyroidism type: acquired Chronic atrial fibrillation I48.20 Presence of permanent cardiac pacemaker Z95.0
--- NOTE | 2021-11-21 10:02 | PC.CHAP ---
Pastoral Care Encounter/Spiritual Assessment Type of Contact [] Declined sheet metal helper visit [] Patient/Family/Request visit [] Outpatient visit [] Follow-up visit [] Physician referral [] Code/Alert [x] Routine visit [] Staff referral [] Actively dying [] Patient sleeping [] Family support [] [] Out of room [] Palliative care [] [] Receiving care in room [] Pre-surgical visit [] Trauma [] Long length of stay [] ICU visit [] Other:covid Relational/Emotional Strength [] Patient feels connected with others/family/visitors/staff [] Distress [] Loneliness/isolation [] Abandonment Spirituality of Patient [] Person of Rebeka [] Attends Zoroastrianism of their Rebe[place] [] Believes in Prayer [] Reads Bible or Bahai materials [] There are Spiritual issues to be addressed Warehouse Shipper Interventions [x] Prayer [] Active listening [] Non-anxious presence [] Spiritual/emotional support [] Crisis/trauma care [] Spiritual counseling [] Bereavement support [] Provided bereavement packet [] Provided Bible/devotional materials [] Provided toy/stuffed animal, coloring book to patient or family member [] Provided Communion [] Anointing/Rural [place]reat [] Salvation [] Completed spiritual assessment [] Other: Impact on Illness or Injury [] Angry [] Fearful [] Anxious [] Often cries [] Exhaustion [] Unable to work [] Unable to attend christian [] Unable to walk/stand [] Unable to read [] Unable to drive [] Unable to eat/drink [] Unable to sleep [] Unable to be with family [] Patient intubated [] Other: Summary Time spent with patient
[2021-11-21] MEDS: metoprolol tartrate 25 mg Tablet PO ×2 (10:34→20:45)
[2021-11-21] MEDS: aspirin 81 mg EC Tablet PO (15:20)
[2021-11-21] MEDS: clopidogrel 300 mg Tablet PO (15:20)
[2021-11-21] MEDS: enoxaparin 60 mg/0.6 mL Syringe SUBCUT (15:20)
--- NOTE | 2021-11-21 19:01 | PM.PN ---
Subjective Subjective: At the time of visit she denies chest pain or pressure. She is having some mild, stop cough. He is not short of breath. No headache, nausea vomiting or diarrhea. Vitals/I&O/Wt Last Vital Signs Temp 99.2 F 11/21/21 16:00 Pulse 60 11/21/21 16:00 Resp 17 11/21/21 16:00 BP 125/60 11/21/21 16:00 Pulse Ox 92 11/21/21 16:00 O2 Del Method 11/21/21 16:00 11/21/21 11/21/21 11/21/21 06:59 14:59 22:59 Intake Total 1000 / 1000 Balance 1000 / 1000 Weight last 48 hrs Weight 62.142 kg Physical Exam Narrative: Ambulating in the room. Const: COMMON NORMALS: patient oriented x3 and alert GENERAL APPEARANCE: cooperative ORIENTATION/CONSCIOUSNESS: Yes awake HENMT: COMMON NORMALS: oropharynx normal Neck/C-Spine: COMMON NORMALS: no JVD Resp: COMMON NORMALS: normal respiratory effort and clear to auscultation bilaterally AUSCULTATION: clear to auscultation bilaterally Cardio: COMMON NORMALS: no JVD, regular rhythm, S1 normal heart sound present, S2 normal heart sound present and No murmurs present (Cardio) RHYTHM: regular rhythm HEART SOUNDS: S1 normal heart sound present and S2 normal heart sound present GI: COMMON NORMALS: Normal to inspection, nondistended, normoactive bowel sounds present, Soft to palpation and non-tender PALPATION: Yes Soft to palpation Extremity: COMMON NORMALS: no joint enlargement and no pedal edema Neuro: COMMON NORMALS: patient oriented x3 and moves all extremities SENSORIUM/ORIENTATION: Yes alert Skin: COMMON NORMALS: no rashes or lesions noted GENERAL SKIN EXAM: no rashes or lesions noted Data : 11/21/21 05:19 11/21/21 05:19 A&P Assessment and plan (1) Elevated troponin: Non-STEMI. Appreciate care evaluation given troponin rise with positive delta. Regional wall motion abnormality on echo. History of CAD, CHF. Medication adjustment appreciated. Escalated on anticoagulation to therapeutic. Monitor hemoglobin level. Antiplatelet, BB, statin. Status: Acute (2) COVID-19: Mild to moderate illness. Oxygenating well on room air. Reassess oxygenation. Perhaps contributed to non-STEMI. Status: Acute (3) Abnormal EKG: Status: Acute (4) Dyslipidemia: Status: Acute (5) History of cardiac pacemaker: Status: Chronic (6) Essential hypertension: Status: Chronic (7) Afib: Status: Chronic (8) DINO (generalized anxiety disorder): Status: Chronic (9) Hypothyroid: Status: Chronic Qualifiers: Hypothyroidism type: acquired Qualified Code(s): E03.9 - Hypothyroidism, unspecified (10) CHF (congestive heart failure): Status: Chronic Plan A. fib without RVR: History of possible GI bleed, although details not entirely clear. Will need to confirm. Does report it appears to have been at least back in her before 2019. Currently tubulation due to NSTEMI. Monitor hemoglobin or for signs of bleeding. Patient has been exposed to family members who tested positive for COVID-19 Attestations Medical Necessity Statement*: Continue admission for assessment management of NSTEMI in a lady with COVID-19, history of possible GI bleed. Coding Level of Care Code Acute Electronics System Mechanic for Chg Fwd Diagnoses Elevated troponin R77.8 COVID-19 U07.1 Abnormal EKG R94.31 Dyslipidemia E78.5 History of cardiac pacemaker Z95.0 Essential hypertension I10 Afib I48.91 DINO (generalized anxiety disorder) F41.1 Hypothyroid E03.9 Hypothyroidism type: acquired CHF (congestive heart failure) I50.9
[2021-11-21] MEDS: atorvastatin 40 mg Tablet PO (20:46)
[2021-11-22] VITALS (10 sets, daily range): BP systolic 110–149; BP diastolic 55–75; PULSE 62–78; RESP 12–18; TEMP 36.7–36.8; O2SAT 94–98
[2021-11-22] MEDS: sodium chloride 0.9% 1,000 ML 75 ML IV ×2 (03:25→14:32)
[2021-11-22] MEDS: enoxaparin 60 mg/0.6 mL Syringe SUBCUT ×2 (03:31→14:31)
[2021-11-22] MEDS: levothyroxine 88 mcg Tablet PO (05:11)
[2021-11-22 05:52] LABS: Basophils % 0.7 %; Eosinophils # 0.1 10^3/uL (0.0-0.8); Eosinophils % 1.1 %; Hematocrit 39.7 % (37.0-47.0); Hemoglobin 12.7 g/dL (11.5-15.3); Lymphocytes # 0.7 10^3/uL (0.8-4.8); Mean Corpuscular Hemoglobin 34.4 pg (28.0-34.0); Mean Corpuscular Volume 107.6 fl (81-99); Mean Platelet Volume 11.3 fL (7.4-10.4); Monocytes # 0.5 10^3/uL (0.2-0.9); Monocytes % 10.3 %; Neutrophils # 3.27 10^3/uL (1.8-7.7); Neutrophils % 71.5 %; Nucleated Red Blood Cells % 0 %; Platelet Count 107 10^3/cmm (130-400); Red Blood Count 3.69 10^6/uL (4.1-5.3); Red Cell Distribution Width 13.2 % (12.1-15.1); White Blood Count 4.6 10^3/uL (4.0-10.0)
[2021-11-22 06:02] LABS: D Dimer 0.66 ug/mIFEU (0-0.59)
[2021-11-22 06:04] LABS: Slide Review Slide Review Perform
[2021-11-22 06:07] LABS: Alanine Aminotransferase 18 U/L (0-33); Albumin Level 3.2 g/dL (3.5-5.2); Alkaline Phosphatase 155 U/L (35-105); Blood Urea Nitrogen 8 mg/dL (8-23); Calcium 8.4 mg/dL (8.5-10.5); Carbon Dioxide 23 mmol/L (22-29); Chloride 106 mmol/L (98-107); Globulin 3.2 g/dL (1.3-4.6); Glucose 91 mg/dL (65-115); Osmolality Calculated 284 mOsm/kg (285-295); Sodium 138 mmol/L (136-145); Total Bilirubin 0.6 mg/dL (0.15-1.2); Total Protein 6.4 g/dL (6.6-8.7)
[2021-11-22 06:08] LABS: Anion Gap 12.8 (5-19); Aspartate Amino Transferase 36 U/L (0-32); Potassium 3.8 mmol/L (3.5-5.1)
[2021-11-22] MEDS: sennosides-docusate Tablet 1 TAB PO (08:15)
[2021-11-22] MEDS: aspirin 81 mg EC Tablet PO (08:15)
[2021-11-22] MEDS: clopidogrel 75 mg Tablet PO (08:15)
[2021-11-22] MEDS: metoprolol tartrate 25 mg Tablet PO (08:15)
--- NOTE | 2021-11-22 11:13 | P.PN_ITS ---
Subjective Subjective: She feels well and denies any chest pain Medications: Reviewed: Yes Vitals/I&O/Wt Last Vital Signs Temp 98.3 F 11/22/21 07:42 Pulse 62 11/22/21 10:10 Resp 18 11/22/21 10:10 BP 137/75 11/22/21 07:42 Pulse Ox 96 11/22/21 10:10 O2 Del Method 11/22/21 10:10 11/21/21 11/22/21 11/22/21 22:59 06:59 14:59 Intake Total 800 / 1800 903.75 / 2703.75 240 / 240 Balance 800 / 1800 903.75 / 2703.75 240 / 240 Weight last 48 hrs Weight 137 lb Data : 11/22/21 05:40 11/22/21 05:40 Other Labs: Baseline troponin T 13. NT proBNP 3308 Other data: TTE (11/20/21) ?CONCLUSIONS ?Normal LV size and ejection fraction of 65%.? Mild concentric ?left tubular hypertrophy. ? Mild hypokinesia of the apical septum and somewhat dyskinetic ?apical inferior wall segments. ?Mild biatrial enlargementThickened mitral valve. ?Mild mitral annular calcification.? ?Possibly severe eccentric mitral valve regurgitation. ?Dpilrgfu-em-nysjsc tricuspid valve regurgitation.? Estimated ?pulmonary artery peak systolic pressure 45 mmHg. ?Thickened aortic valve. ?Trace pulmonary valve regurgitation. ?Pacemaker wire in the right atrium and right ventricle ?No similar previous studies are available for compariso EKG showed atrial fibrillation with left axis deviation. Possible anterior HI of indeterminate age. Deep T wave inversion in lead II, 3, aVF V3 to V6. A&P Assessment and plan (1) Non-ST elevation myocardial infarction (NSTEMI), subendocardial infarction, initial episode of care: Elevated troponin T, abnormal EKG and echocardiogram with some RWMA. -Currently she seems to be stable hemodynamically. -LVEF is preserved. -She was diagnosed with COVID 19 as well. -She denies any chest pain at this time -Plan for LHC in next 1-2 weeks after she is out of COVID isolation -May continue with medical management on ASA, plavix, beta mak, statin Status: Acute (2) COVID: Patient tested positive for COVID-19. Status: Acute (3) Atherosclerosis of coronary artery of [place] heart without angina pectoris: She is known to have atherosclerotic heart disease by angiogram in the past. - She had only moderate coronary disease, based on the patient's report Status: Acute (4) Essential hypertension: Status: Chronic (5) Dyslipidemia: Status: Acute (6) Hypothyroid: Status: Chronic Qualifiers: Hypothyroidism type: acquired Qualified Code(s): E03.9 - Hypothyroidism, unspecified (7) Chronic atrial fibrillation: Status: Acute (8) Presence of permanent cardiac pacemaker: Patient's pacemaker function was found to be appropriate. Continue on the current follow-up schedule Status: Acute Attestations Medical Necessity Statement*: As per primary team Coding Level of Care Code Acute [place] Alarm Installer for [facility] Fwd Diagnoses Non-ST elevation myocardial infarction (NSTEMI), subendocardial infarction, initial episode of care I21.4 COVID U07.1 Atherosclerosis of coronary artery of [place] heart without angina pectoris I25.10 Essential hypertension I10 Dyslipidemia E78.5 Hypothyroid E03.9 Hypothyroidism type: acquired Chronic atrial fibrillation I48.20 Presence of permanent cardiac pacemaker Z95.0
--- NOTE | 2021-11-22 20:49 | P.DS_ITS ---
Discharge Providers Date of Admission: 11/21/21 16:44 Date of Discharge: November 22, 2021 Attending Provider at Admission: Yamilet Cooper MD Attending Provider at Discharge: Eric Brito Primary Care Provider: CARMEN Thompson Diagnoses at Discharge Discharge Diagnosis (1) Non-ST elevation myocardial infarction (NSTEMI), subendocardial infarction, initial episode of care: Status: Acute (2) COVID: Status: Acute (3) Atherosclerosis of coronary artery of [place] heart without angina pectoris: Status: Acute (4) Essential hypertension: Status: Chronic (5) Dyslipidemia: Status: Acute (6) Hypothyroid: Status: Chronic Qualifiers: Hypothyroidism type: acquired Qualified Code(s): E03.9 - Hypothyroidism, unspecified (7) Chronic atrial fibrillation: Status: Acute (8) Presence of permanent cardiac pacemaker: Status: Acute Reason for Visit Reason for Visit: sob, possible covid Hospital Course Hospital Course Pleasant 81-year-old lady with history of A. fib, denies GI bleeding or other life-threatening bleeding, does say she bruises, bleeds easily on her skin with small injuries, due to which has not been on anticoagulation, history of CHF, PPM, CAD, reported history of LAD stenosis, came in after complaint of low-grade fever, shortness of breath, recently also under a lot of stress. Was exposed to family positive for COVID-19. On presentation she was dyspneic, dehydrated. Low-grade fever 100.3. While in hospital noted to have positive troponin delta with elevation from 39-54.66. She remained chest pain-free. Her dyspnea had actually improved and she was ambulating in the room and to the restroom. Through hospital stay did not require oxygen support. Having mild cough productive of beige appearing sputum. Additionally assessed by echocardiogram which showed mild concentric LV hypertrophy. Mild hypokinesia of apical septum and somewhat dyskinetic apical inferior wall segments. Mild atrial enlargement. Possibly severe eccentric mitral valve regurgitation. Moderate-severe TVR. Estimated pulm artery systolic pressure is 45 mmHg. Trace PVR. She was assessed by cardiology and medications for possible NSTEMI were added including anticoagulation which she did tolerate well. Yesterday she continued to do well, continue to recover from her COVID infection, remaining chest pain-free, as per discussion with her in cardiology she felt comfortable returning home today to complete recovery from COVID, follow-up early next week in cardiology office to make plans for left heart cath assessment. As she so far has tolerated anticoagulation, we discussed with her continuation of anticoagulation, and she states she is familiar with Eliquis. This medication is continued for at this time. Please reassess medications and de- escalate depending on additional cardiac findings. Please reassess blood counts at next visit. Physical Exam Narrative: Ambulating in the room. Const: COMMON NORMALS: patient oriented x3 and alert GENERAL APPEARANCE: cooperative ORIENTATION/CONSCIOUSNESS: Yes awake HENMT: COMMON NORMALS: oropharynx normal Neck/C-Spine: COMMON NORMALS: no JVD Resp: COMMON NORMALS: normal respiratory effort and clear to auscultation bilaterally AUSCULTATION: clear to auscultation bilaterally Cardio: COMMON NORMALS: no JVD, regular rhythm, S1 normal heart sound present, S2 normal heart sound present and No murmurs present (Cardio) RHYTHM: regular rhythm HEART SOUNDS: S1 normal heart sound present and S2 normal heart sound present GI: COMMON NORMALS: Normal to inspection, nondistended, normoactive bowel sounds present, Soft to palpation and non-tender PALPATION: Yes Soft to palpation Extremity: COMMON NORMALS: no joint enlargement and no pedal edema Neuro: COMMON NORMALS: patient oriented x3 and moves all extremities SENSORIUM/ORIENTATION: Yes alert Skin: COMMON NORMALS: no rashes or lesions noted GENERAL SKIN EXAM: no rashes or lesions noted Discharge Data Studies Completed and Pending Completed Studies During Hospitalization Category Date Time Status XR chest 1V portable [id number] Stat Exams 11/20/21 21:29 Completed CV. echo complete* [id number] Routine Ultrasound 11/20/21 23:24 Completed Radiology Impressions Chest X-Ray 11/20/21 21:29 IMPRESSION: 1. Mild prominence of the cardiac silhouette without evidence of acute cardiac decompensation. 2. Partially calcified granulomas seen in lower hemithoraces. Laboratory Results WBC 4.6 10^3/uL (4.0-10.0) 11/22/21 05:40 Corrected WBC Cancelled 11/21/21 01:48 RBC 3.69 10^6/uL (4.1-5.3) L 11/22/21 05:40 Hgb 12.7 g/dL (11.5-15.3) 11/22/21 05:40 Hct 39.7 % (37.0-47.0) 11/22/21 05:40 MCV 107.6 fl (81-99) H 11/22/21 05:40 MCH 34.4 pg (28.0-34.0) H 11/22/21 05:40 MCHC 32.0 g/dL (30.0-36.0) D 11/22/21 05:40 RDW 13.2 % (12.1-15.1) 11/22/21 05:40 Plt Count 107 10^3/cmm (130-400) L 11/22/21 05:40 MPV 11.3 fL (7.4-10.4) H 11/22/21 05:40 Gran % Cancelled 11/21/21 01:48 Neut % (Auto) 71.5 % 11/22/21 05:40 Lymph % (Auto) 16.0 % 11/22/21 05:40 [place] % (Auto) 10.3 % 11/22/21 05:40 Eos % (Auto) 1.1 % 11/22/21 05:40 Baso % (Auto) 0.7 % 11/22/21 05:40 Neut # (Auto) 3.27 10^3/uL (1.8-7.7) 11/22/21 05:40 Lymph # (Auto) 0.7 10^3/uL (0.8-4.8) L 11/22/21 05:40 [place] # (Auto) 0.5 10^3/uL (0.2-0.9) 11/22/21 05:40 Eos # (Auto) 0.1 10^3/uL (0.0-0.8) 11/22/21 05:40 Baso # (Auto) 0.0 10^3/uL (0.0-0.1) 11/22/21 05:40 Absolute Gran (auto) Cancelled 11/21/21 01:48 Nucleated RBC % (auto) 0 % 11/22/21 05:40 Nucleated RBCs # 0.0 /100WBC 11/22/21 05:40 D-Dimer 0.66 ug/mIFEU (0-0.59) H 11/22/21 05:40 Sodium 138 mmol/L (136-145) 11/22/21 05:40 Potassium 3.8 mmol/L (3.5-5.1) 11/22/21 05:40 Chloride 106 mmol/L (98-107) 11/22/21 05:40 Carbon Dioxide 23 mmol/L (22-29) 11/22/21 05:40 Anion Gap 12.8 (5-19) 11/22/21 05:40 BUN 8 mg/dL (8-23) 11/22/21 05:40 Creatinine 0.7 mg/dL (0.5-0.9) 11/22/21 05:40 GFR Calculation Not Reportable 11/22/21 05:40 Glucose 91 mg/dL (65-115) 11/22/21 05:40 Calculated Osmolality 284 mOsm/kg (285-295) L 11/22/21 05:40 Calcium 8.4 mg/dL (8.5-10.5) L 11/22/21 05:40 Magnesium 2.0 mg/dL (1.7-2.3) 11/21/21 05:19 Total Bilirubin 0.6 mg/dL (0.15-1.2) 11/22/21 05:40 AST 36 U/L (0-32) H 11/22/21 05:40 ALT 18 U/L (0-33) 11/22/21 05:40 Alkaline Phosphatase 155 U/L (35-105) H 11/22/21 05:40 Troponin T Baseline 39 ng/L (0-10) H 11/20/21 19:25 Troponin T 120 Minute 54.66 ng/L (0-10) H 11/20/21 20:55 Delta Troponin T 15.66 ABS# (0-10) H* 11/20/21 20:55 C-Reactive Protein 16.3 mg/L (0.0-4.9) H 11/21/21 05:19 NT-Pro-B Natriuret Pep 3308 pg/mL (0-450) H 11/20/21 19:25 Total Protein 6.4 g/dL (6.6-8.7) L 11/22/21 05:40 Albumin 3.2 g/dL (3.5-5.2) L 11/22/21 05:40 Globulin 3.2 g/dL (1.3-4.6) 11/22/21 05:40 Vitamin B12 253 pg/mL (232-1245) 11/20/21 20:55 Procalcitonin 0.38 ng/mL (0-0.5) 11/20/21 20:55 Coronavirus 229E (PCR) Not detected (NOT DETECT) 11/20/21 19:25 SARS-CoV-2 (PCR) Detected (NOT DETECT) A 11/20/21 19:25 Vitals Last Vital Signs Temp 98.0 F 11/22/21 17:32 Pulse 68 11/22/21 17:32 Resp 18 11/22/21 17:32 BP 124/73 11/22/21 17:32 Pulse Ox 94 11/22/21 17:32 O2 Del Method 11/22/21 15:39 Discharge Plan Discharge Patient Disposition: Home Condition: Stable Prescriptions: New acetaminophen 500 mg tablet 500 mg PO Q6H PRN (Reason: pain) 5 Days Qty: 20 0RF Maalox Advanced 1,000-60 mg tablet,chewable 1 tab PO TID PRN (Reason: abdominal pain) 7 Days Qty: 21 0RF Pepcid 20 mg tablet 20 mg PO BID PRN (Reason: abdominal pain) 10 Days Qty: 20 0RF ondansetron 4 mg tablet,disintegrating 4 mg PO TID PRN (Reason: nausea and vomiting) 4 Days Qty: 12 0RF Paxlovid (EUA) 150 mg x 2- 100 mg tablet See Rx Instructions .ROUTE .COMPLEX Qty: 30 0RF Rx Instructions: take TWO 150 mg tablets of nirmatrelvir with ONE 100 mg tablet of ritonavir twice daily for 5 days atorvastatin 40 mg Tablet 40 mg PO BEDTIME Qty: 90 0RF clopidogrel 75 mg Tablet 75 mg PO DAILY Qty: 30 0RF aspirin 81 mg Tablet,Delayed Release (Dr/Ec) 162 mg PO DAILY Qty: 60 0RF nitroglycerin 0.4 mg tablet, sublingual 0.4 mg sublingual Q5M PRN (Reason: chest pain) Qty: 25 0RF Rx Instructions: do not exceed 3 doses per episode apixaban 5 mg tablet 5 mg PO BID Qty: 180 0RF doxycycline hyclate 100 mg tablet 100 mg PO BID 7 Days Qty: 14 0RF Continued levothyroxine [Synthroid] 88 mcg tablet 88 mcg PO DAILY Qty: 90 1RF metoprolol tartrate 25 mg tablet 37.5 mg PO BID 90 Days Qty: 270 1RF Rx Instructions: dose change Discharge Orders: Discharge Order (Routine); Ordered 11/22/21 Ordered By: Eirc Brito Referrals: Angelito Beltran FNP-C [Primary Care Provider] - 4-7 days (Please call Rainer Beltran's office Wednesday to schedule a hospital follow up appointment within 1 week. ) Katelyn Gillette FNP [Nurse Practitioner] - 4-7 days (Please call [facility] Wednesday morning to set up outpatient angiogram. ) Discharge Diet: Advance as tolerated and Cardiac Discharge Activity: Increase activity as tolerated Patient Instructions: Aspirin (By mouth), Atorvastatin (By mouth), Clopidogrel (By mouth), Apixaban (By mouth), Heart Attack (GEN), COVID-19 (Coronavirus Disease 2019) (ED) Activity Restrictions/Additional Instructions: Come back to the emergency room if your symptoms worsen, have any shortness of breath, fever/chills, dehydration, inability tolerate food or drinks, any difficulty breathing, or any new or concerning complaints. Please return the emergency room if your pulse ox reads less than 90%. Please avoid any fall or injury especially due to being on antiplatelet medications as well as anticoagulation with Eliquis. After closer evaluation of your heart attack, discussed which of these medications can be discontinued. Isolate due to COVID-19 until Friday 11/24. Follow-up with cardiology to set up for additional evaluation with coronary angiogram. Until then avoid any strenuous activity. Return in case you develop severe or persistent chest pain or pressure or any other concerning symptoms. Discharge Attestations Time Spent in Discharge Care*: greater than 30 min Quality Metrics Clinical Quality Measures [ Acute Myocardial Infaction { Clinical Trial Participant: No; Contraindication to aspirin: None; Aspirin prescribed; Contraindication to statin: None; Statin prescribed; Contraindication to PCI: Further opinion sought;}] Coding Level of Care Code Acute [facility] FW DC note Diagnoses Non-ST elevation myocardial infarction (NSTEMI), subendocardial infarction, ini tial episode of care I21.4 COVID U07.1 Atherosclerosis of coronary artery of [place] heart without angina pectoris I25.10 Essential hypertension I10 Dyslipidemia E78.5 Hypothyroid E03.9 Hypothyroidism type: acquired Chronic atrial fibrillation I48.20 Presence of permanent cardiac pacemaker Z95.0
== END 2021-11-22 17:58 | disposition home or self-care (01) | DRG 280 ==
LOC: ER 21:27 → MEDSURG 22:11
PROVIDERS: Admitting Provider Internal Medicine; Emergency Provider Emergency Medicine; PCP Nurse Practitioner; Visit Provider Internal Medicine
DX: I21.4 Non-ST elevation (NSTEMI) myocardial infarction (principal); U07.1 COVID-19; I48.20 Chronic atrial fibrillation, unspecified; I50.32 Chronic diastolic (congestive) heart failure; I11.0 Hypertensive heart disease with heart failure; Z95.0 Presence of cardiac pacemaker; E78.5 Hyperlipidemia, unspecified; F41.1 Generalized anxiety disorder; E03.9 Hypothyroidism, unspecified; I08.1 Rheumatic disorders of both mitral and tricuspid valves; I25.10 Atherosclerotic heart disease of native coronary artery without angina pectoris; E86.0 Dehydration; Z28.310 Unvaccinated for COVID-19
CPT/HCPCS: 36415; 71045; 80048; 80053; 82607; 83735; 83880; 84145; 84484; 85025; 85378; 86140; 87635; 93005; 93306; 94664; 94760; 96360; 96372; 99285; G0378; J1650; J7030; J7040

== ENCOUNTER → 2021-11-28 11:01 | Outpatient (BNVA) | payer MEDICARE, SELFPAY | PROVIDERS: PCP Nurse Practitioner; Visit Provider Nurse Practitioner Family | DX: I25.10 Atherosclerotic heart disease of native coronary artery without angina pectoris (principal); I11.0 Hypertensive heart disease with heart failure; I50.9 Heart failure, unspecified; Z95.0 Presence of cardiac pacemaker | CPT/HCPCS: 99213 ==

== ENCOUNTER 2022-01-07 11:10 | Emergency (ER) | payer MEDICARE, SELFPAY ==
[2022-01-07 11:25] VITALS: BP 160/81; PULSE 76; RESP 14; TEMP 36.4; O2SAT 99; BMI 22.6
--- NOTE | 2022-01-07 11:49 | PC.NURSE ---
Patient here with c/o fall landing on concrete after tripping over a rug, patient denies LOC, denies dizziness. Patient has bruising/lac above left eye, bleeding controlled.
[2022-01-07 11:52] VITALS: BP 168/93; PULSE 65; RESP 14; O2SAT 99
--- NOTE | 2022-01-07 11:55 | CT_ITS ---
WS: [id number] CT CERVICAL TRAUMA TECHNIQUE: Noncontrast CT of the cervical spine with coronal and sagittal reformatted images. CLINICAL INFORMATION: fell COMPARISON: None. DLP: 164.[address] scans at [facility] use at least one of these dose optimization techniques: automated e xposure control; mA and/or kV adjustment per patient size (includes targeted exams where dose is matc hed to clinical indication); or iterative reconstruction. FINDINGS: Straightening of the normal cervical lordosis. Moderate spondylitic changes. Disc space narrowing wit h mild disc osteophyte complexes at C4-C5 C5-C6 and C6-C7. Mild central canal stenosis at C4-C6. Norm al craniocervical junction. Normal C1-C2 articulation. Dens is normal in appearance. Normal occipital condyles. Normal prevertebral soft tissues. Mastoids air cells are well aerated. CT/CT cervical spin wo con* [id number] IMPRESSION: No evidence of acute fracture or dislocation.
--- NOTE | 2022-01-07 11:55 | CT_ITS ---
WS: [id number] CT HEAD TECHNIQUE: Noncontrast CT of the head obtained from the skullbase to the vertex. CLINICAL INFORMATION: fell COMPARISON: 2018 DLP: 1072.[address] scans at [facility] use at least one of these dose optimization techniques: automated e xposure control; mA and/or kV adjustment per patient size (includes targeted exams where dose is matc hed to clinical indication); or iterative reconstruction. FINDINGS: No evidence of intracranial hemorrhage or mass effect. Ventricular system and basal cisterns are mandujano nt. Moderate small vessel changes with moderate parenchymal volume loss. Benign basal ganglia calcifi cations. No extra-axial fluid collections. No evidence of mass or mass effect. Small amount of fluid in the sphenoid sinus. Mild mucosal thickening ethmoid air cells and RIGHT mast oid air cells. LEFT mastoid air cells are well aerated. CT/CT head wo con* [id number] IMPRESSION: 1. No evidence of intracranial hemorrhage or mass effect. 2. No acute intracranial findings.
--- NOTE | 2022-01-07 12:06 | PC.PHAR ---
pt states she takes care of her own medications-pt states she doesnt take aspirin 162mg daily,lipitor 40mg hs or plavix 75mg daily-pt states she never got the rx written on 11/22/21 for nitro
[2022-01-07 14:30] VITALS: BP 168/93; PULSE 66; RESP 15; O2SAT 98
[2022-01-07 15:01] VITALS: BP 155/69; PULSE 73; RESP 15; TEMP 36.7; O2SAT 96
--- NOTE | 2022-01-08 12:14 | ED_ITS ---
HPI - Fall General: Chief Complaint: Fall Stated Complaint: fall, head injury Time Seen by Provider: 01/07/22 11:55 History of Present Illness: 82 yo female patient present to the ER with fall this am. Pt states she tripped on rug and hit her temporal area on a rack. Pt denies any LOC pt denies any neck pain pt states she is not on blood thinners. Pt tetanus is not utd but states she does not want one Associated symptoms-after fall: Denies abdominal pain, chest pain, confusion, difficulty walking, hematuria, lightheadedness, neck pain or vertigo Review of Systems Const: Denies: fever(s), chills, body aches, change in appetite, change in weight, fatigue, malaise or diaphoresis Eyes: Denies: change in vision, blurry vision, blind spots, photophobia, eye discomfort, eye discharge, eye redness, floaters or seeing flashes ENMT: Denies: throat pain, uvular edema, enlarged tonsils, odynophagia, hoarseness, mouth pain, swelling of lips/tongue, oral sores, bleeding gums, dental pain, dry mouth, ear or mastoid pain, ear discharge, change in hearing, tinnitus, disequilibrium, nasal discharge, nasal congestion, post nasal drip or sinus pain Card: Denies: chest pain, palpitations, irregular heart rhythm, edema, swelling of feet/ankles, lightheadedness, syncope, pre-syncope, dyspnea on exertion, orthopnea, leg pain with exertion or acrocyanosis Resp: Denies: dyspnea, productive cough, non-productive cough, wheezing, stridor, pain on inspiration, change in phlegm color, hemoptysis or chest congestion GI: Denies: abdominal pain, nausea, vomiting, hematemesis, dysphagia, diarrhea, constipation, GI cramping, change in bowel habits or rectal pain : Denies: flank pain, difficulty voiding, dysuria, urinary frequency, urinary urgency, urinary hesitancy or hematuria Musc: Denies: neck pain, back pain, extremity pain, extremity swelling, joint pain, joint swelling, joint redness, joint warmth or deformity Skin/Breast: Denies: rash, pruritus, erythema, sores, new lesions, changes in skin color or dry skin Neuro: Denies: numbness in extremities, weakness in extremities, sensory changes, lack of coordination, difficulty walking, frequent falls, dizziness, vertigo, confusion, behavioral changes, Slurred speech present, difficulty communicating thoughts or seizure-like activity Psych: Denies: anxiety, depression, suicidal ideation or homicidal ideation Endo: Denies: polyuria, polydipsia, tired all the time, cold intolerance, excessive sweating, flushing, hot flashes or heat intolerance Ki/Lymph: Denies: easy bruising, easy bleeding, petechiae, purpura, enlarged lymph nodes or tender lymph nodes All/Imm: Denies: urticaria, throat swelling, tongue swelling, facial swelling, acute wheezing or itchy eyes PFSH ED PFSH: Medical History Afib Anxiety and depression CHF (congestive heart failure) Dyslipidemia Essential hypertension DINO (generalized anxiety disorder) History of cardiac pacemaker Hypothyroid Surgical History H/O knee surgery H/O: hysterectomy History of ankle surgery Family History Daughter Anesthesia complication CAD (coronary artery disease) Clotting disorder Mother Cancer Dementia Sister Cancer Denies family history of Diabetes Chronic kidney disease (CKD) Suicide Bleeding disorder Lung disease Stroke Social History Smoking and tobacco status: never smoked Second hand smoke exposure: No Smoking risk assessment/counseling performed?: No Alcohol intake: never Desire information about alcohol rehabilitation?: No Counseling given: No Desire information about substance/drug rehabilitation?: No Counseling given: No Adopted: No Caregiver/support person: Yes Household members: family Housing: House Marital status: / service: No Current occupational status: retired and disabled Current occupational exposures/hazards: No History of recent travel: No Current gender identity: Female Physical Exam Const: COMMON NORMALS: no acute distress, patient oriented x3, healthy appearing, alert and well nourished GENERAL APPEARANCE: cooperative, comfortable, well kempt and well developed; not ill appearing ORIENTATION/CONSCIOUSNESS: Yes awake, Yes oriented to person, Yes oriented to place and Yes oriented to time HENMT: COMMON NORMALS: normocephalic, hearing grossly normal bilaterally, external ears normal, EAC's normal, TM's normal bilaterally, Normal external nose present, Normal nasal mucous membranes and turbinates present and moist oral mucous membranes HEAD & SCALP: normal to inspection and normocephalic FACE & SINUS: normal facial exam, sinuses nontender and face symmetric NOSE: Normal external nose present, Normal nares present, Normal nasal mucous membranes and turbinates present, No nasal discharge present and Abnormal external nose present EXTERNAL EAR: Yes external ears normal and Yes mastoids normal EXTERNAL AUDITORY CANAL: EAC's normal TYMPANIC MEMBRANE: TM's norm al bilaterally MOUTH: Normal oral and palatal mucosa present, lip normal, tongue normal and Normal salivary glands and ducts present THROAT: no uvular edema Eye: COMMON NORMALS: Equal, round and reactive pupils present, EOMs intact bilaterally, conjunctivae normal and no scleral icterus GENERAL EYE: appearance normal, both eyes and all related structures EYELID: eyelids normal CONJUNCTIVA: Yes conjunctivae normal SCLERA: sclerae normal CORNEA: Yes corneas normal PUPIL: Yes Equal, round and reactive pupils present Neck/C-Spine: COMMON NORMALS: full ROM, no lymphadenopathy, supple, no meningeal signs, no JVD and Thyroid normal GENERAL: Yes normal visual inspection and Yes trachea midline THYROID: Thyroid normal CERVICAL SPINE: Yes cervical ROM normal Lymph: LYMPHATIC: no lymphadenopathy noted and no lymphedema noted Chest: COMMONS NORMALS: normal inspection of the chest and normal palpation of entire chest wall Resp: COMMON NORMALS: normal respiratory effort, No retractions, No use of accessory muscles and clear to auscultation bilaterally EFFORT & INSPECTION: Yes able to speak in complete sentences and Yes symmetric chest movement AUSCULTATION: clear to auscultation bilaterally Cardio: COMMON NORMALS: no JVD, regular rate and regular rhythm RATE: regular rate RHYTHM: regular rhythm GI: COMMON NORMALS: Normal to inspection, nondistended, normoactive bowel sounds present, Soft to palpation, non-tender, No hepatosplenomegaly present, no masses and no bruits INSPECTION: Yes normal to inspection AUSCULTATION: Yes normoactive bowel sounds PALPATION: Yes Soft to palpation and Yes No hepatosplenomegaly present PERCUSSION: normal to percussion RECTAL EXAM: deferred Back/Pelvis: COMMON NORMALS: thoracic and lumbar spine normal to inspection, no thoracic nor lumbar tenderness, thoraco-lumbar ROM normal and straight leg raise negative bilaterally THORACIC SPINE/UPPER BACK: Yes normal to inspection LUMBAR SPINE/LOWER BACK: Yes normal to inspection Extremity: COMMON NORMALS: normal to inspection, full ROM and capillary refill normal GENERAL: Yes normal exam except as noted Neuro: COMMON NORMALS: patient oriented x3, CN's II-XII intact bilaterally, moves all extremities, no focal motor deficits, no sensory deficits noted, deep tendon reflexes 2+ bilaterally and gait normal SENSORIUM/ORIENTATION: Yes alert, Yes oriented to person, Yes oriented to place and Yes oriented to time MENINGEAL SIGNS: Yes no meningeal signs CRANIAL NERVES: Yes CN normal except as noted SPEECH: speech normal GAIT: Yes Normal gait present SENSORY EXAM: Yes extremities MOTOR EXAM: 5/5 motor strength present throughout Psych: COMMON NORMALS: mental status grossly normal, Normal thought process present, cooperative, normal affect, speech normal, activity/motor behavior normal, denies hallucinations, denies homicidal ideation and denies suicidal ideation APPEARANCE: Yes grossly normal and Yes well kempt ATTITUDE: Yes calm ACTIVITY/MOTOR BEHAVIOR: Yes appropriate eye contact SPEECH: Yes normal speech THOUGHT PROCESS: Normal thought process present THOUGHT CONTENT: Yes Normal thought content present ATTENTION/CONCENTRATION: Yes attention grossly intact MEMORY/COGNITION: Yes memory grossly intact INSIGHT: Good insight present (Psych) JUDGEMENT: Good judgement present (Psych) Skin: COMMON NORMALS: no rashes or lesions noted, turgor normal, no jaundice, no petechiae and no mottling GENERAL SKIN EXAM: no rashes or lesions noted and turgor normal Course Vital Signs: Vital signs: Vital Signs Temperature 98.1 F 01/07/22 15:01 Pulse Rate 73 01/07/22 15:01 Respiratory Rate 15 01/07/22 15:01 Blood Pressure 155/69 01/07/22 15:01 Pulse Oximetry 96 01/07/22 15:01 Oxygen Delivery Me thod 01/07/22 14:30 MDM - Fall Medical Decision Making Patient is well appearing non toxic and in no acute distress. 82 yo female patient present to the ER with fall this am. Pt states she tripped on rug and hit her temporal area on a rack. Pt denies any LOC pt denies any neck pain pt states she is not on blood thinners. Pt tetanus is not utd but states she does not want one Pt CT head and neck are negative for any acute fractures. Pt does not have any pain with ROM. Wound was cleansed and dressed. return precautions and home care advised Lab Data Radiology Impressions Cervical Spine CT 01/07/22 11:55 IMPRESSION: No evidence of acute fracture or dislocation. Head CT 01/07/22 11:55 IMPRESSION: 1. No evidence of intracranial hemorrhage or mass effect. 2. No acute intracranial findings. Discharge Plan Discharge Patient Disposition: Home Clinical Impression: Contusion of head Condition: Stable Prescriptions: No Action metoprolol tartrate 25 mg tablet 37.5 mg PO BID 90 Days Qty: 270 1RF Rx Instructions: dose change Tylenol Ex Str Rapid Release 500 mg Tablet 500 mg PO Q6H PRN (Reason: Pain) Synthroid 88 mcg tablet 88 mcg PO DAILY@04 Discharge Orders: Discharge ED (Routine); Ordered 01/07/22 Ordered By: Kathleen Foreman Referrals: Angelito Beltran, [employer] REPAIRER-C [Primary Care Provider] - Discharge Diet: Advance as tolerated Discharge Activity: Increase activity as tolerated Patient Instructions: Opioid Safety, Pain Management Activity Restrictions/Additional Instructions: Please return to ER with any worsening of symptoms Please keep wound clean and dry You did not want your tetanus up dated today Coding Level of Care Code ED Artist'S Manager for Abby Muñoz
== END 2022-01-07 15:05 | disposition home or self-care (01) ==
PROVIDERS: Emergency Provider Registered Nurse; PCP Nurse Practitioner
DX: S00.03XA Contusion of scalp, initial encounter (principal); W18.09XA Striking against other object with subsequent fall, initial encounter; I11.0 Hypertensive heart disease with heart failure; I50.9 Heart failure, unspecified; E78.5 Hyperlipidemia, unspecified; Z95.0 Presence of cardiac pacemaker
CPT/HCPCS: 70450; 72125; 99284

== ENCOUNTER → 2022-02-17 09:08 | Outpatient (BNVA) | payer MEDICARE, SELFPAY | PROVIDERS: PCP Nurse Practitioner; Visit Provider Nurse Practitioner Family | DX: R05.9 Cough, unspecified (principal); J98.8 Other specified respiratory disorders | CPT/HCPCS: 87400; 87426 ==

== ENCOUNTER → 2022-03-10 11:33 | Outpatient (BNVA) | payer MEDICARE, SELFPAY | PROVIDERS: PCP Nurse Practitioner; Visit Provider Nurse Practitioner | DX: E03.9 Hypothyroidism, unspecified (principal); I10 Essential (primary) hypertension; I48.91 Unspecified atrial fibrillation | CPT/HCPCS: 80053; 80061; 84443 ==

== ENCOUNTER → 2022-05-11 15:45 | Outpatient (BNVA) | payer MEDICARE, SELFPAY | PROVIDERS: PCP Nurse Practitioner; Visit Provider Internal Medicine | DX: I11.0 Hypertensive heart disease with heart failure (principal); I50.9 Heart failure, unspecified; F41.1 Generalized anxiety disorder; R53.83 Other fatigue; R00.2 Palpitations; E78.5 Hyperlipidemia, unspecified; Z95.0 Presence of cardiac pacemaker; I48.91 Unspecified atrial fibrillation; E03.9 Hypothyroidism, unspecified | CPT/HCPCS: 99214 ==

== ENCOUNTER 2023-05-06 09:06 | Emergency (ER) | payer MEDICARE, SELFPAY ==
[2023-05-06 09:28] VITALS: BP 139/81; PULSE 96; RESP 16; TEMP 36.7; O2SAT 97; BMI 26.5
--- NOTE | 2023-05-06 10:15 | XR_ITS ---
WS: [id number] Portable AP upright chest, 05/06/2023 Clinical Data: cough Comparison: Portable chest, 11/20/2021 Findings: No nodules, masses or effusions are seen. The heart is enlarged. The pulmonary vascularity is not increased. No pneumonia or pneumothorax is seen. The 2-lead cardiac pacemaker remains in the s dodie position. The aortic arch shows mild calcification. Impression: 1. Cardiomegaly and atherosclerosis. 2. No change in cardiac pacemaker.
--- NOTE | 2023-05-06 10:52 | W.ED.URI ---
HPI - URI/Sore Throat General: Chief Complaint: Upper Respiratory Infection Stated Complaint: coughing, sneezing Time Seen by Provider: 05/06/23 10:51 Mode of arrival: ambulatory Limitations: no limitations History of Present Illness: 83-year-old female states she has had cough congestion over the last 6 days. She states been a dry cough states that she has not produced any sputum with it. She denies any pain anywhere denies any shortness of breath states that just been persistent. She states she is around her grandkids had some cough as well. Denies any fever denies any vomiting. Associated symptoms: Deny abdominal pain, chills, chest pain, diarrhea, fever(s), headache(s), nausea or vomiting Review of Systems Const: Denies: fever(s), chills or change in appetite Eyes: Denies: blurry vision or eye discomfort ENMT: Denies: throat pain or dental pain Card: Denies: chest pain Resp: Reports: non-productive cough; Denies: dyspnea GI: Denies: abdominal pain, nausea, vomiting or diarrhea Musc: Denies: neck pain or back pain Skin/Breast: Denies: rash Neuro: Denies: headache(s) PFSH ED PFSH: Medical History Dyslipidemia DINO (generalized anxiety disorder) Hypothyroid Anxiety and depression CHF (congestive heart failure) Essential hypertension Surgical History H/O: hysterectomy History of ankle surgery H/O knee surgery Family History Daughter Anesthesia complication CAD (coronary artery disease) Clotting disorder Mother Cancer Dementia Sister Cancer Denies family history of Diabetes Chronic kidney disease (CKD) Suicide Bleeding disorder Lung disease Stroke Social History Smoking and tobacco/nicotine status: never used tobacco/nicotine Second hand smoke exposure: No Alcohol intake: never Substance/Drug Use: never Adopted: No Caregiver/support person: Yes Household members: family Housing: House Marital status: / service: No Current occupational status: retired and disabled Current occupational exposures/hazards: No Do you think of yourself as: Straight/Heterosexual Current gender identity: Female Physical Exam Const: COMMON NORMALS: no acute distress, patient oriented x3 and healthy appearing HENMT: COMMON NORMALS: normocephalic and atraumatic HEAD & SCALP: normocephalic and atraumatic Neck/C-Spine: COMMON NORMALS: full ROM and supple Chest: COMMONS NORMALS: normal inspection of the chest Resp: COMMON NORMALS: normal respiratory effort, No retractions, No use of accessory muscles and clear to auscultation bilaterally AUSCULTATION: clear to auscultation bilaterally Cardio: COMMON NORMALS: regular rate, regular rhythm and No murmurs present (Cardio) RATE: regular rate RHYTHM: regular rhythm Extremity: COMMON NORMALS: normal to inspection and full ROM Neuro: COMMON NORMALS: patient oriented x3, moves all extremities and no focal motor deficits Psych: COMMON NORMALS: mental status grossly normal, Normal thought process present and cooperative THOUGHT PROCESS: Normal thought process present Skin: COMMON NORMALS: no rashes or lesions noted and no wounds GENERAL SKIN EXAM: no rashes or lesions noted Course Vital Signs: Vital signs: Vital Signs Temperature 98.0 F 05/06/23 09:28 Pulse Rate 96 05/06/23 09:28 Respiratory Rate 16 05/06/23 09:28 Blood Pressure 139/81 05/06/23 09:28 Pulse Oximetry 97 05/06/23 09:28 Oxygen Delivery Me thod Room Air 05/06/23 09:28 MDM - URI/Sore Throat Medical Decision Making Patient presents here with cough going on for a week she is well-appearing here no fever no hypoxia x-ray shows no pneumonia she is stable for discharge she is to follow-up with PCP and return if worsening she understands agrees to plan. Medical Records I reviewed the patient's medical records. Lab Data I reviewed the patient's lab results. Laboratory Results Influenza Type A Ag negative (Negative) 05/06/23 10:45 Influenza Type B Ag negative (Negative) 05/06/23 10:45 SARS-CoV-2 Ag (Rapid) negative (Negative) 05/06/23 10:45 All radiology interpretation(s) finalized by discharge Discharge Plan Discharge Patient Disposition: Home Clinical Impression: Upper respiratory infection Condition: Stable Prescriptions: No Action albuterol sulfate [ProAir HFA] 90 mcg/actuation HFA aerosol inhaler 2 puff inhalation Q6H PRN (Reason: shortness of breath or wheezing) Qty: 6.7 0RF metoprolol tartrate 25 mg tablet 37.5 mg PO BID 90 Days Qty: 270 1RF Rx Instructions: dose change Synthroid 88 mcg tablet 88 mcg PO DAILY@04 Qty: 90 1RF Tylenol Ex Str Rapid Release 500 mg Tablet 500 mg PO Q6H PRN (Reason: Pain) Discharge Orders: Discharge ED (Routine); Ordered 05/06/23 Ordered By: Shay Mora Referrals: Angelito Beltran FNP-C [Primary Care Provider] - 4-7 days Discharge Diet: Advance as tolerated Discharge Activity: Resume usual activity Patient Instructions: Upper Respiratory Infection (ED) Coding Level of Care Code ED 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
[2023-05-06 11:12] LABS: Influenza A by IFA negative (Negative); Influenza B by IFA negative (Negative)
[2023-05-06 11:13] LABS: SARS Covid-2 Antigen negative (Negative)
== END 2023-05-06 11:24 | disposition home or self-care (01) ==
PROVIDERS: Emergency Provider Emergency Medicine; PCP Nurse Practitioner
DX: J06.9 Acute upper respiratory infection, unspecified (principal); Z11.52 Encounter for screening for COVID-19; E78.5 Hyperlipidemia, unspecified; I11.0 Hypertensive heart disease with heart failure; I50.9 Heart failure, unspecified
CPT/HCPCS: 71045; 87426; 87804; 99284

== ENCOUNTER 2023-07-31 21:05 | Inpatient (IN) | payer MEDICARE, SELFPAY ==
[2023-07-31 21:06] VITALS: BP 117/56; PULSE 64; RESP 17; TEMP 35.8; O2SAT 97; BMI 27.6
[2023-07-31 21:30] VITALS: BP 117/56; PULSE 63; RESP 16; O2SAT 100
--- NOTE | 2023-07-31 21:33 | XRR_ITS ---
PROCEDURE INFORMATION: Exam: XR Chest Exam date and time: 07/31/2023 9:44 PM Age: 83 years old Clinical indication: Prior surgery; Surgery date: 6+ months; Surgery type: Pacer; Patient HX: Drug overdose. History of chf. TECHNIQUE: Imaging protocol: Radiologic exam of the chest. Views: 1 view. COMPARISON: CR XR chest 1V portable [id number] 05/06/2023 10:41 AM FINDINGS: Lungs: No focal consolidation or other acute appearing pulmonary opacity. Pleural spaces: No pleural effusion or pneumothorax noted. Heart/Mediastinum: There is cardiomegaly. Mild dextroconvex scoliosis of the lower thoracic vertebrae. Bones/joints: No acute osseous abnormality. Generalized osteopenia. If subclavian dual lead pacemaker. XR/XR chest 1V portable [id number] IMPRESSION: No acute cardiopulmonary disease.
--- NOTE | 2023-07-31 21:33 | ECG_ITS ---
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 Measurements Intervals [place] Rate: 61 P: 0 AK: 0 QRS: -79 QRSD: 188 T: 92 QT: 478 QTc: 485 Interpretive Statements ELECTRONIC VENTRICULAR PACEMAKER ABNORMAL RHYTHM ECG Compared to ECG 11/20/2021 20:44:21 Atrial fibrillation no longer present Left-axis deviation no longer present Myocardial infarct finding no longer present T-wave abnormality no longer present Possible ischemia no longer present Electronically Signed On 08-01-2023 22:13:46 CDT by Lai Orr M.D. [id number]
[2023-07-31 21:39] LABS: Basophils # 0.1 10^3/uL (0.0-0.1); Basophils % 0.9 %; Eosinophils # 0.2 10^3/uL (0.0-0.8); Eosinophils % 4.2 %; Hematocrit 39.5 % (36-47); Lymphocytes # 1.4 10^3/uL (0.8-4.8); Mean Corpuscular HGB Conc 32.7 g/dL (30-55); Mean Corpuscular Hemoglobin 33.7 pg (27-33); Mean Corpuscular Volume 103.1 fl (85-98); Monocytes # 0.5 10^3/uL (0.2-0.9); Monocytes % 9.9 %; Neutrophils # 3.28 10^3/uL (1.8-7.7); Neutrophils % 59.8 %; Nucleated Red Blood Cells % 0 %; Platelet Count 153 10^3/cmm (157-399); Red Blood Count 3.83 10^6/uL (3.85-5.65); Red Cell Distribution Width 13.2 % (12.1-15.1); White Blood Count 5.48 10^3/uL (3.29-11.43)
--- NOTE | 2023-07-31 21:47 | PC.NURSE ---
Spoke with Radha RAMIREZ, from poison control about the potential side effects of taking 22 tabs of 25mg Metoprolol, 11tabs of 5mg Diazepam, 11tabs of 75mcg Levothyroxine, and 11tabs of 81mg Baby Aspirin. Per poison control provide supportive care in case of hypotension, monitor BG, tachycardia, bradycardia.
--- NOTE | 2023-07-31 21:50 | ED_ITS ---
HPI - Overdose 2 General: Chief Complaint: Overdose Stated Complaint: OD Time Seen by Provider: 07/31/23 21:07 History of Present Illness: 83-year-old female presenting with an ap parent overdose. We received a call from the patient's family, stating that she had taken as many as 22 of her metoprolol, 11 aspirin 81 mg, 11 diazepam, and 11 levothyroxine. Family noted that, this was an attempt to harm herself. On the patient's arrival, she states that she has no intention of harming herself or anyone else. Medications are usually laid out for her by a family member, and she simply took what she thought was her normal nightly medication. The patient has a pacemaker. She presents awake and talking. Heart rate is 60. Blood pressure 117/56 saturation is 100 on room air, respirations are 20. The ingestion by report happened at 5 PM. Review of Systems 2 Const: Denies: fever(s) ENMT: Denies: throat pain Card: Denies: chest pain Resp: Denies: dyspnea GI: Denies: abdominal pain or vomiting Neuro: Denies: headache(s) or confusion PFSH ED 2 PFSH: Medical History Dyslipidemia DINO (generalized anxiety disorder) Hypothyroid Anxiety and depression CHF (congestive heart failure) Essential hypertension Surgical History H/O: hysterectomy History of ankle surgery H/O knee surgery Family History Daughter Anesthesia complication CAD (coronary artery disease) Clotting disorder Mother Cancer Dementia Sister Cancer Denies family history of Diabetes Chronic kidney disease (CKD) Suicide Bleeding disorder Lung disease Stroke Social History Smoking and tobacco/nicotine status: never used tobacco/nicotine Second hand smoke exposure: No Alcohol intake: never Substance/Drug Use: never Adopted: No Caregiver/support person: Yes Household members: family Housing: House Marital status: / service: No Current occupational status: retired and disabled Current occupational exposures/hazards: No Do you think of yourself as: Straight/Heterosexual Current gender identity: Female Physical Exam 2 Const: COMMON NORMALS: no acute distress GENERAL APPEARANCE: cooperative ORIENTATION/CONSCIOUSNESS: Yes awake, Yes oriented to person and Yes oriented to place HENMT: COMMON NORMALS: normocephalic, atraumatic and Normal external nose present HEAD & SCALP: normocephalic and atraumatic NOSE: Normal external nose present Eye: COMMON NORMALS: Equal, round and reactive pupils present and EOMs intact bilaterally PUPIL: Yes Equal, round and reactive pupils present Chest: CHEST: Yes Symmetrical chest wall rise Resp: COMMON NORMALS: normal respiratory effort, No use of accessory muscles and clear to auscultation bilaterally AUSCULTATION: clear to auscultation bilaterally Cardio: COMMON NORMALS: regular rate and regular rhythm RATE: regular rate RHYTHM: regular rhythm GI: COMMON NORMALS: Soft to palpation PALPATION: Yes Soft to palpation Neuro: SENSORIUM/ORIENTATION: Yes oriented to person and Yes oriented to place Course 2 Vital Signs: Vital signs: Vital Signs Temperature 96.8 F L 08/01/23 04:00 Pulse Rate 68 08/01/23 14:00 Respiratory Rate 13 08/01/23 12:00 Blood Pressure 149/69 08/01/23 12:00 Pulse Oximetry 95 08/01/23 12:00 Oxygen Delivery Me thod Room Air 08/01/23 05:30 MDM - Overdose Medical Decision Making This patient's vitals have been quite stable. She does not appear to be intoxicated on benzodiazepines. She is not hypotensive or significantly bradycardic. She is paced regardless. By EMS report on their arrival, the family would not let the EMS crew inside the home. They refused to give EMS her medication bottles. Nevertheless, the patient's vitals have remained stable. She's awake and talking. She seems mostly appropriate. She will require medical admission with the history of potential ingestion so that she can be medically cleared. Psychiatry can be consulted to determine whether further psychiatric care may or may not be needed once she is medically clear. Hospitalist is seeing the patient. The patient does have a urinary tract infection, for which treatment is begun in the ER. Lab Data 08/01/23 06:02 08/01/23 06:02 Radiology Impressions Chest X-Ray 07/31/23 21:33 IMPRESSION: No acute cardiopulmonary disease. Hip/Pelvis X-Ray 08/01/23 01:09 IMPRESSION: No acute findings. Ribs X-Ray 08/01/23 01:09 IMPRESSION: 1. Area of lucency superior to the aortic knob, underlying injury cannot be excluded, recommend CT for better evaluation. 2. No fractures are noted. ADDENDUM: 08/01/23 0246 THIS REPORT CONTAINS FINDINGS THAT MAY BE CRITICAL TO PATIENT CARE. The findings were verbally communicated via telephone conference with Dr. Lucas at 2:44 AM CDT on 08/01/2023. The findings were acknowledged and understood. Chest CT 08/01/23 02:47 IMPRESSION: 1. There are no acute osseous findings. 2. Patchy ground-glass opacities, increased septal markings, mild prominence of the pulmonary vascularity in the lower nando thoraces, findings that could represent pulmonary edema. 3. Prior granulomatous exposure. Cervical Spine CT 08/01/23 02:59 IMPRESSION: No acute findings. ADDENDUM: 08/01/23 0656 The described pockets of air appear to be in veins. Face CT 08/01/23 02:59 IMPRESSION: No acute findings. Head CT 08/01/23 13:00 IMPRESSION: 1. No CT evidence of acute intracranial pathology. 2. Additional findings, as above. Laboratory Results WBC 5.48 10^3/uL (3.29-11.43) 07/31/23 21:14 RBC 3.83 10^6/uL (3.85-5.65) L 07/31/23 21:14 Hgb 12.90 g/dL (11.27-16.99) 07/31/23 21:14 Hct 39.5 % (36-47) 07/31/23 21:14 MCV 103.1 fl (85-98) H 07/31/23 21:14 MCH 33.7 pg (27-33) H 07/31/23 21:14 MCHC 32.7 g/dL (30-55) 07/31/23 21:14 RDW 13.2 % (12.1-15.1) 07/31/23 21:14 Plt Count 153 10^3/cmm (157-399) L 07/31/23 21:14 MPV 11.0 fL (7.4-10.4) H 07/31/23 21:14 Neut % (Auto) 59.8 % 07/31/23 21:14 Lymph % (Auto) 25.0 % 07/31/23 21:14 Beckham % (Auto) 9.9 % 07/31/23 21:14 Eos % (Auto) 4.2 % 07/31/23 21:14 Baso % (Auto) 0.9 % 07/31/23 21:14 Neut # (Auto) 3.28 10^3/uL (1.8-7.7) 07/31/23 21:14 Lymph # (Auto) 1.4 10^3/uL (0.8-4.8) 07/31/23 21:14 Beckham # (Auto) 0.5 10^3/uL (0.2-0.9) 07/31/23 21:14 Eos # (Auto) 0.2 10^3/uL (0.0-0.8) 07/31/23 21:14 Baso # (Auto) 0.1 10^3/uL (0.0-0.1) 07/31/23 21:14 Nucleated RBC % (auto) 0 % 07/31/23 21:14 Nucleated RBCs # 0.0 /100WBC 07/31/23 21:14 Sodium 140 mmol/L (136-145) 07/31/23 21:14 Potassium 3.8 mmol/L (3.5-5.1) 07/31/23 21:14 Chloride 105 mmol/L (98-107) 07/31/23 21:14 Carbon Dioxide 27 mmol/L (22-29) 07/31/23 21:14 Anion Gap 11.8 (5-19) 07/31/23 21:14 BUN 18 mg/dL (8-23) 07/31/23 21:14 Creatinine 1.1 mg/dL (0.5-0.9) H 07/31/23 21:14 GFR Calculation Not Reportable 07/31/23 21:14 Glucose 99 mg/dL (65-115) 07/31/23 21:14 POC Glucose 98 mg/dL (70-110) 07/31/23 21:53 Calculated Osmolality 292 mOsm/kg (285-295) 07/31/23 21:14 Lactic Acid 1.2 mmol/L (0.5-2.2) 08/01/23 00:00 Calcium 8.8 mg/dL (8.5-10.5) 07/31/23 21:14 Total Bilirubin 0.7 mg/dL (0.15-1.2) 07/31/23 21:14 AST 27 U/L (0-32) 07/31/23 21:14 ALT 12 U/L (0-33) 07/31/23 21:14 Alkaline Phosphatase 145 U/L (35-105) H 07/31/23 21:14 Total Protein 7.6 g/dL (6.6-8.7) 07/31/23 21:14 Albumin 3.9 g/dL (3.5-5.2) 07/31/23 21:14 Globulin 3.7 g/dL (1.3-4.6) 07/31/23 21:14 TSH 0.08 uIU/mL (0.27-4.20) L 07/31/23 21:14 Urine Color Yellow (Yellow) 07/31/23 22:13 Urine Appearance Cloudy (CLEAR) A 07/31/23 22:13 Urine pH 5 (5-7) 07/31/23 22:13 Ur Specific [place] 1.010 (1.005-1.030) 07/31/23 22:13 Urine Protein 1+ (Negative) H 07/31/23 22:13 Urine Glucose (UA) Norm (Normal) 07/31/23 22:13 Urine Ketones 1+ (Negative) H 07/31/23 22:13 Urine Blood 3+ (Negative) H 07/31/23 22:13 Urine Nitrate Negative (Negative) 07/31/23 22:13 Urine Bilirubin Neg (Negative) 07/31/23 22:13 Urine Urobilinogen 4 mg/dL (Negative) H 07/31/23 22:13 Ur Leukocyte Esterase 2+ (Negative) H 07/31/23 22:13 Urine RBC 5-10 /hpf (0-2) H 07/31/23 22:13 Urine WBC 25-40 /hpf (0-5) H 07/31/23 22:13 Ur Squamous Epith Cells 0-4 /hpf (0-5) H 07/31/23 22:13 Amorphous Sediment Not Reportable 07/31/23 22:13 Urine Bacteria 4+ /hpf (NONE) H 07/31/23 22:13 Salicylates 3.5 mg/dL (3-10) 07/31/23 21:14 Urine Opiates Screen Negative ng/mL (Negative) 07/31/23 22:13 Acetaminophen < 5.0 ug/mL (10-30) L 07/31/23 21:14 Ur Barbiturates Screen Negative ng/mL (Negative) 07/31/23 22:13 Ur Phencyclidine Scrn Negative ng/mL (Negative) 07/31/23 22:13 Ur Amphetamines Screen Negative ng/mL (Negative) 07/31/23 22:13 U Benzodiazepines Scrn Positive ng/mL (Negative) H 07/31/23 22:13 Urine Cocaine Screen Negative ng/mL (Negative) 07/31/23 22:13 U Marijuana (THC) Screen Negative ng/mL (Negative) 07/31/23 22:13 Ethyl Alcohol < 10 mg/dL (0-10) 07/31/23 21:14 All radiology interpretation(s) finalized by discharge Discharge Plan Discharge Patient Disposition: Admitted As Inpatient Admit Provider: Kavon Lucas Clinical Impression: UTI (urinary tract infection), Accidental medication overdose Condition: Stable Coding Level of Care Code ED 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
[2023-07-31 21:55] LABS: Glucose Point of Care 98 mg/dL (70-110)
[2023-07-31 21:59] LABS: Alanine Aminotransferase 12 U/L (0-33); Albumin Level 3.9 g/dL (3.5-5.2); Alkaline Phosphatase 145 U/L (35-105); Anion Gap 11.8 (5-19); Aspartate Amino Transferase 27 U/L (0-32); Blood Urea Nitrogen 18 mg/dL (8-23); Calcium 8.8 mg/dL (8.5-10.5); Carbon Dioxide 27 mmol/L (22-29); Chloride 105 mmol/L (98-107); Creatinine Clr Calc Pharmacy 35.2656; Globulin 3.7 g/dL (1.3-4.6); Glucose 99 mg/dL (65-115); Osmolality Calculated 292 mOsm/kg (285-295); Potassium 3.8 mmol/L (3.5-5.1); Salicylate 3.5 mg/dL (3-10); Sodium 140 mmol/L (136-145); Thyroid Stimulating Hormone 0.08 uIU/mL (0.27-4.20); Total Bilirubin 0.7 mg/dL (0.15-1.2); Total Protein 7.6 g/dL (6.6-8.7)
[2023-07-31 22:02] LABS: Acetaminophen < 5.0 ug/mL (10-30); Alcohol Level < 10 mg/dL (0-10)
[2023-07-31 22:21] VITALS: BP 128/61; PULSE 62; RESP 15; O2SAT 100
[2023-07-31] MEDS: sodium chloride 0.9% 500 ML 999 ML IV (22:24)
[2023-07-31 22:39] LABS: Add Urine Culture? Yes; Add Urine Microscopic? YES; Bacteria Urine 4+ /hpf; Bilirubin Urine Neg (Negative); Blood Urine 3+ (Negative); Glucose Urine UA Norm (Normal); Ketones Urine 1+ (Negative); Leukocyte Esterase Urine 2+ (Negative); Nitrate Urine Negative (Negative); Protein Urine 1+ (Negative); Squamous Epithelial Cell Urine 0-4 /hpf (0-5); Urine Appearance Cloudy (CLEAR); Urine Color Yellow (Yellow); Urobilinogen Urine 4 mg/dL (Negative); WBC Urine 25-40 /hpf (0-5); pH Urine 5 (5-7)
[2023-07-31 22:40] LABS: Amphetamines Screen Urine Negative (Negative); Barbiturates Screen Urine Negative (Negative); Benzodiazepines Screen Urine Positive (Negative); Cocaine Screen Urine Negative (Negative); Opiate Screen Urine Negative (Negative); PCP Screen Urine Negative (Negative); THC Screen Urine Negative (Negative)
[2023-07-31 23:11] VITALS: BP 127/63; PULSE 60; RESP 10; O2SAT 96
[2023-07-31 23:43] VITALS: BP 121/57; PULSE 60; RESP 10; O2SAT 96
[2023-07-31] MEDS: cefTRIAXone 1,000 MG in sodium chloride 0.9% (plus) 50 ML 100 MG IV (23:43)
[2023-08-01] VITALS (47 sets, daily range): BP systolic 105–150; BP diastolic 41–88; PULSE 60–68; RESP 9–20; TEMP 36–36.4; O2SAT 90–100
[2023-08-01 00:29] LABS: Lactic Sepsis W/Reflex 1.2 mmol/L (0.5-2.2)
--- NOTE | 2023-08-01 01:05 | ECG_ITS ---
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 Measurements Intervals [place] Rate: 64 P: 0 AK: 0 QRS: -76 QRSD: 169 T: 91 QT: 462 QTc: 477 Interpretive Statements ELECTRONIC VENTRICULAR PACEMAKER ABNORMAL RHYTHM ECG Compared to ECG 11/20/2021 20:44:21 Atrial fibrillation no longer present Left-axis deviation no longer present Myocardial infarct finding no longer present T-wave abnormality no longer present Possible ischemia no longer present Electronically Signed On 08-01-2023 22:19:48 CDT by Lai Orr M.D. [id number]
--- NOTE | 2023-08-01 01:07 | PM.HP ---
Providers/Chief Complaint Admitting Physician: Kavon Lucas MD Chief Complaint: OD History of Present Illness Luna Beltran is a 83 year old female with a past medical history of atrial fibrillation, CAD, dyslipidemia hypertension, anxiety disorder hypothyroidism, CHF, history of pacemaker who presents to [facility] due to concerns for accidental overdose of her medications. Currently she is alert to person, to place, she knows the month does not know the year she at times she is quite forgetful, her [id number] is at bedside. She tells me that since her , her [id number]-afw and son had moved into her house with her children and they keep a close eye on her however she manages her own medication. In the last 2 weeks she has had increased falls, some of the falls have resulted in in her hitting her head, no loss of consciousness, no headache, but she does have left rib pain from one of the falls, her family is concerned as there is several pill bottles that are almost empty, specifically her aspirin, metoprolol and levothyroxine, she also uses Valium however those medications seem appropriately use. Patient denies any suicidal ideation or homicidal ideation, denies intentionally overdosing on drugs, denies feeling down depressed or sad, family thinks she is accidentally taken too much of her medications however she denies this. Currently she denies any chest pain, palpitations, shortness of breath no headache, blurry vision but does report quite unsteadiness on her feet which is more acute on chronic, family tells me that she has had several falls in the last few weeks, patient's family is not exactly sure over what period of time this medication drug overdose has happened, but they tell me roughly 70 pills are missing, from their account, denies any nausea, no vomiting no bloody or black stools Review of Systems Const: Denies: fever(s) Eyes: Denies: change in vision Card: Denies: chest pain Resp: Denies: dyspnea GI: Denies: abdominal pain Medications/Allergies Home Medications Medication Instructions Recorded Confirmed Last Taken Type acetaminophen 500 mg tablet 500 mg PO Q6H PRN Pain 01/07/22 05/11/22 Unknown History albuterol sulfate 90 mcg/actuation 2 puff inhalation Q6H PRN 02/17/22 05/11/22 Unknown Rx aerosol inhaler (ProAir HFA) shortness of breath or wheezing #6.7 grams Synthroid 88 mcg tablet 88 mcg PO DAILY@04 #90 tabs 03/10/22 05/11/22 Unknown Rx (levothyroxine) metoprolol tartrate 25 mg tablet 37.5 mg (1.5 x 25 mg) PO BID 90 03/10/22 05/11/22 Unknown Rx days #270 tabs Allergies Allergy/AdvReac Type Severity Reaction Status Date / Time apixaban [From Eliquis] AdvReac Mild unknown Verified 07/31/23 21:20 gentamicin AdvReac Mild unknown Verified 07/31/23 21:20 tramadol [From Ultram] AdvReac Mild all side Verified 07/31/23 21:20 effects warfarin [From Coumadin] AdvReac Mild unknown Verified 07/31/23 21:20 PFSH Acute PFSH: Medical History Dyslipidemia DINO (generalized anxiety disorder) Hypothyroid Anxiety and depression CHF (congestive heart failure) Essential hypertension Surgical History H/O: hysterectomy History of ankle surgery H/O knee surgery Family History Daughter Anesthesia complication CAD (coronary artery disease) Clotting disorder Mother Cancer Dementia Sister Cancer Denies family history of Diabetes Chronic kidney disease (CKD) Suicide Bleeding disorder Lung disease Stroke Social History Smoking and tobacco/nicotine status: never used tobacco/nicotine Second hand smoke exposure: No Alcohol intake: never Substance/Drug Use: never Adopted: No Caregiver/support person: Yes Household members: family Housing: House Marital status: / service: No Current occupational status: retired and disabled Current occupational exposures/hazards: No Do you think of yourself as: Straight/Heterosexual Current gender identity: Female Vitals/I&O/Wt Last Vital Signs Temp 96.5 F L 07/31/23 21:06 Pulse 64 08/01/23 00:36 Resp 15 08/01/23 00:36 BP 121/57 08/01/23 00:36 Pulse Ox 95 08/01/23 00:36 O2 Del Method Room Air 08/01/23 00:36 07/31/23 07/31/23 08/01/23 14:59 22:59 06:59 Intake Total 500 / 500 Balance 500 / 500 Weight last 48 hrs Weight 70.76 kg Physical Exam Const: COMMON NORMALS: no acute distress ORIENTATION/CONSCIOUSNESS: Yes awake, Yes oriented to person and Yes oriented to place; not oriented to time HENMT: COMMON NORMALS: normocephalic HEAD & SCALP: normocephalic Eye: COMMON NORMALS: Equal, round and reactive pupils present Neck/C-Spine: COMMON NORMALS: no JVD Resp: COMMON NORMALS: normal respiratory effort, No retractions, No use of accessory muscles and clear to auscultation bilaterally AUSCULTATION: clear to auscultation bilaterally Cardio: COMMON NORMALS: no JVD, regular rate, regular rhythm, S1 normal heart sound present and S2 normal heart sound present RATE: regular rate RHYTHM: regular rhythm HEART SOUNDS: S1 normal heart sound present and S2 normal heart sound present GI: COMMON NORMALS: Normal to inspection, nondistended, normoactive bowel sounds present, Soft to palpation and non-tender PALPATION: Yes Soft to palpation Extremity: COMMON NORMALS: no pedal edema Neuro: COMMON NORMALS: patient oriented x3, CN's II-XII intact bilaterally and moves all extremities Psych: COMMON NORMALS: mental status grossly normal Data 07/31/23 21:14 07/31/23 21:14 Micro: Microbiology 08/01/23 00:00 Blood Culture - Preliminary Blood SPECIMEN COLLECTED 08/01/23 00:00 Blood Culture - Preliminary Blood SPECIMEN COLLECTED A&P Assessment and plan (1) Accidental medication overdose: (2) DINO (generalized anxiety disorder): (3) Essential hypertension: (4) CHF (congestive heart failure): (5) Chronic atrial fibrillation: (6) Hypothyroid: Qualifiers: Hypothyroidism type: acquired Qualified Code(s): E03.9 - Hypothyroidism, unspecified (7) UTI (urinary tract infection): Plan Accidental medication overdose ? Concerning medications are aspirin, levothyroxine, metoprolol ? Does have a pacemaker in place ? Aspirin, salicylate level within normal limits, no complaints of bloody black stools, hemoglobin stable ? Levothyroxine TSH is decreased, check T3, check T4 ?timeframe is unknown it could be over the last few weeks ? Plan ?Telemetry monitoring ? Serial troponins and serial EKGs ? Monitor in the ICU closely ? Hold all p.o. medications ? CT head, INR, PTT, magnesium ? UTI, Rocephin ? CODE STATUS, confirmed with patient multiple times that she is DNR/DNI ? Lovenox for DVT prophylaxis Attestations Medical Necessity Statement*: Patient requires hospitalization for accidental medication overdose, UTI, inpatient, greater than 2 midnights Diagnoses Accidental medication overdose T50.901A DINO (generalized anxiety disorder) F41.1 Essential hypertension I10 CHF (congestive heart failure) I50.9 Chronic atrial fibrillation I48.20 Acquired hypothyroidism E03.9 Hypothyroidism type: acquired UTI (urinary tract infection) N39.0
--- NOTE | 2023-08-01 01:09 | XRR_ITS ---
PROCEDURE INFORMATION: Exam: XR Bilateral Hips Exam date and time: 08/01/2023 1:39 AM Age: 83 years old Clinical indication: Injury or trauma; Blunt trauma (contusions or hematomas); Prior surgery; Surgery date: 6+ months; Surgery type: Hysterectomy; Patient HX: Patient states she has had multiple falls over last two weeks. C/O bilateral hip pain. ; Additional info: Fall TECHNIQUE: Imaging protocol: Radiologic exam of the bilateral hips. Views: 2 views of hips with pelvis when performed. COMPARISON: CR XR sacrum coccyx min 2V [id number] 02/27/2018 9:06 PM FINDINGS: Bones/joints: There are no fractures or dislocations noted. There is degenerative disease of the spine. Soft tissues: Unremarkable. Gastrointestinal tract: Findings suggestive of constipation. XR/XR hip BI 2V wo/w pel [id number] IMPRESSION: No acute findings.
--- NOTE | 2023-08-01 01:09 | CTR_ITS ---
PROCEDURE INFORMATION: Exam: CT Head Without Contrast Exam date and time: 08/01/2023 2:23 AM Age: 83 years old Clinical indication: Injury or trauma; Blunt trauma (contusions or hematomas); Patient HX: Patient states she has fallen multiple times over last two weeks and one incident she struck her head. ; Additional info: Fall TECHNIQUE: Imaging protocol: Computed tomography of the head without contrast. Radiation optimization: All CT scans at this facility use at least one of these dose optimization techniques: automated exposure control; mA and/or kV adjustment per patient size (includes targeted exams where dose is matched to clinical indication); or iterative reconstruction. COMPARISON: CT head wo con* [id number] 01/07/2022 12:55 PM RADIATION DOSE METRICS: Total DLP (mGy-cm): 931.58 FINDINGS: Brain: No hemorrhage. Diffuse periventricular white matter disease. No mass effect. No collections. Age related volume loss. Cerebral ventricles: There is ventriculomegaly associated with age related volume loss. Paranasal sinuses: No significant air-fluid levels noted in the visualized sinuses. Mastoid air cells: Mastoid air cells are aerated with no effusions. Bones: No acute osseous abnormality. There are multiple punctate air pockets noted diffusely, specifically lateral to the sella turcica, lateral to the pterygoids, within the right orbit, an occult skull base fracture is suspected, further evaluation is recommended with a dedicated maxillofacial CT. Soft tissues: Unremarkable. CT/CT head wo con* [id number] IMPRESSION: Multiple punctate air pockets, occult skull base fracture is suspected, recommend a dedicated maxillofacial CT for further evaluation.
--- NOTE | 2023-08-01 01:09 | XRR_ITS ---
PROCEDURE INFORMATION: Exam: XR Left Ribs Exam date and time: 08/01/2023 1:44 AM Age: 83 years old Clinical indication: Injury or trauma; Rib area, left side; Blunt trauma; Patient HX: Patient states she has had multiple falls over last two weeks. C/O left lateral rib pain. History of chf. ; Additional info: Fall TECHNIQUE: Imaging protocol: Radiologic exam of the left ribs. Views: 2 views. COMPARISON: CR (CHEST, ) 07/31/2023 9:44 PM FINDINGS: Bones/joints: There are no fractures noted. Lungs: Visualized lungs are unremarkable. There are calcified granulomas within the lungs. Soft tissues: There is an area of lucency superior to the aortic knob, underlying injury cannot be excluded, recommend CT of the chest for better evaluation. Other findings: There is a battery pack projected over the left chest. XR/XR ribs LT 2V* [id number] IMPRESSION: 1. Area of lucency superior to the aortic knob, underlying injury cannot be excluded, recommend CT for better evaluation. 2. No fractures are noted.
--- NOTE | 2023-08-01 01:13 | PC.NURSE ---
Patient is confused; unable to answer all admission questions.
[2023-08-01] MEDS: sodium chloride 0.9% 1,000 ML 75 ML IV (01:18)
[2023-08-01] MEDS: enoxaparin 40 mg/0.4 mL Syringe SUBCUT (01:29)
[2023-08-01] MEDS: pantoprazole 40 mg SDV IVP (01:29)
--- NOTE | 2023-08-01 02:47 | CTR_ITS ---
PROCEDURE INFORMATION: Exam: CT Chest Without Contrast; Diagnostic Exam date and time: 08/01/2023 3:05 AM Age: 83 years old Clinical indication: Injury or trauma; Blunt trauma (contusions or hematomas); Patient HX: Patient sustained recent multiple falls. Lucency superior to aortic knob noted on rib xrays. ; Additional info: Fall, left rib pain TECHNIQUE: Imaging protocol: Diagnostic computed tomography of the chest without contrast. Radiation optimization: All CT scans at this facility use at least one of these dose optimization techniques: automated exposure control; mA and/or kV adjustment per patient size (includes targeted exams where dose is matched to clinical indication); or iterative reconstruction. COMPARISON: CR (CHEST, ) 07/31/2023 9:44 PM RADIATION DOSE METRICS: Total DLP (mGy-cm): 1195.15 FINDINGS: Lungs: Are scattered bilateral calcified pulmonary nodularities. The largest is seen in the left posterior costophrenic recess measuring 7.2 mm. There are patchy ground-glass opacity seen nando thoraces bilaterally, some increased septal markings and mildly prominent pulmonary vascularity, findings suggesting mild pulmonary edema. Pleural spaces: See Lungs finding. Heart: Unremarkable. No cardiomegaly. No pericardial effusion. Coronary arteries: There are no coronary artery calcifications. Lymph nodes: Prominent calcified mediastinal and left hilar lymph nodes are seen. Vasculature: See Lungs finding. Liver: Punctate calcifications are seen within the liver compatible with calcified granulomas. Spleen: Punctate calcifications are seen in the spleen compatible with calcified granulomas. Bones/joints: Unremarkable. No acute fracture. Soft tissues: Unremarkable. CT/CT chest con [id number] IMPRESSION: 1. There are no acute osseous findings. 2. Patchy ground-glass opacities, increased septal markings, mild prominence of the pulmonary vascularity in the lower nando thoraces, findings that could represent pulmonary edema. 3. Prior granulomatous exposure.
--- NOTE | 2023-08-01 02:59 | CTR_ITS ---
PROCEDURE INFORMATION: Exam: CT Maxillofacial Without Contrast Exam date and time: 08/01/2023 3:09 AM Age: 83 years old Clinical indication: Injury or trauma; Blunt trauma (contusions or hematomas); Other: Abnormal head CT; Patient HX: Patient has sustained multiple falls. Multiple punctate air pockets noted on head CT. ; Additional info: Fall TECHNIQUE: Imaging protocol: Computed tomography of the face without contrast. Radiation optimization: All CT scans at this facility use at least one of these dose optimization techniques: automated exposure control; mA and/or kV adjustment per patient size (includes targeted exams where dose is matched to clinical indication); or iterative reconstruction. COMPARISON: CT head wo con* [id number] 08/01/2023 2:23 AM RADIATION DOSE METRICS: Total DLP (mGy-cm): 589.58 FINDINGS: Orbital cavities: Orbits are normal. Globes are unremarkable. Bones: No acute fracture. Paranasal sinuses: There is mild paranasal sinus mucosal thickening. Soft tissues: Unremarkable. CT/CT facial bones wo con* [id number] IMPRESSION: No acute findings.
--- NOTE | 2023-08-01 02:59 | CTR_ITS ---
PROCEDURE INFORMATION: Exam: CT Cervical Spine Without Contrast Exam date and time: 08/01/2023 3:11 AM Age: 83 years old Clinical indication: Injury or trauma; Blunt trauma; Patient HX: Patient has sustained multiple falls. Patient has had multiple imaging studies so far this visit with possible concerning findings. ; Additional info: Fall TECHNIQUE: Imaging protocol: Computed tomography of the cervical spine without contrast. Radiation optimization: All CT scans at this facility use at least one of these dose optimization techniques: automated exposure control; mA and/or kV adjustment per patient size (includes targeted exams where dose is matched to clinical indication); or iterative reconstruction. COMPARISON: CT cervical spin wo con* [id number] 01/07/2022 12:57 PM RADIATION DOSE METRICS: Total DLP (mGy-cm): 393.4 FINDINGS: Bones/joints: No acute fracture. Normal alignment. There is moderate to advanced multilevel degenerative disc disease. There is moderate spinal canal stenosis at C4-C5 and C5-C6 secondary to disc osteophyte bulging. Lungs: There is bilateral apical scarring. Soft tissues: Unremarkable. CT/CT cervical spin wo con* [id number] IMPRESSION: No acute findings.
--- NOTE | 2023-08-01 03:02 | ECG_ITS ---
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 Measurements Intervals [place] Rate: 60 P: 0 NC: 0 QRS: -78 QRSD: 196 T: 93 QT: 499 QTc: 499 Interpretive Statements ELECTRONIC VENTRICULAR PACEMAKER ABNORMAL RHYTHM ECG Compared to ECG 08/01/2023 01:53:44 No significant changes Electronically Signed On 08-01-2023 22:35:11 CDT by Lai Orr M.D. [id number]
[2023-08-01 06:20] LABS: Basophils % 0.5 %; Eosinophils # 0.2 10^3/uL (0.0-0.8); Eosinophils % 4.4 %; Hematocrit 38.5 % (36-47); Lymphocytes % 25.8 %; Mean Corpuscular HGB Conc 31.9 g/dL (30-55); Mean Corpuscular Hemoglobin 33.9 pg (27-33); Mean Corpuscular Volume 106.1 fl (85-98); Mean Platelet Volume 11.2 fL (7.4-10.4); Monocytes # 0.4 10^3/uL (0.2-0.9); Monocytes % 9.1 %; Neutrophils % 59.9 %; Nucleated Red Blood Cells % 0 %; Platelet Count 135 10^3/cmm (157-399); Red Blood Count 3.63 10^6/uL (3.85-5.65); Red Cell Distribution Width 13.2 % (12.1-15.1); White Blood Count 3.84 10^3/uL (3.29-11.43)
[2023-08-01 06:45] LABS: Anion Gap 13.6 (5-19); Blood Urea Nitrogen 18 mg/dL (8-23); Calcium 8.9 mg/dL (8.5-10.5); Carbon Dioxide 23 mmol/L (22-29); Chloride 108 mmol/L (98-107); Creatinine Clr Calc Pharmacy 46.2815; Glucose 89 mg/dL (65-115); Osmolality Calculated 293 mOsm/kg (285-295); Potassium 3.6 mmol/L (3.5-5.1); Sodium 141 mmol/L (136-145)
[2023-08-01 06:46] LABS: Troponin(5th) Baseline 11 ng/L (0-10)
[2023-08-01 06:56] LABS: Free T4 Free Thyroxine 2.83 ng/dL (0.82-1.77); T3 Free 3.2 PG/ML (2.0-4.4)
--- NOTE | 2023-08-01 07:02 | ECG_ITS ---
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 Measurements Intervals [place] Rate: 61 P: 0 GA: 0 QRS: -80 QRSD: 196 T: 88 QT: 506 QTc: 511 Interpretive Statements ELECTRONIC VENTRICULAR PACEMAKER ABNORMAL RHYTHM ECG Compared to ECG 08/01/2023 05:11:46 No significant changes Electronically Signed On 08-01-2023 22:35:55 CDT by Lai Orr M.D. [email or web address] [email or web address], [id number]
--- NOTE | 2023-08-01 07:47 | PC.PHAR ---
PTS SON YINA VERIFIED HOME MEDICATIONS FOR PT- METOPROLOL TARTRATE WAS WRITTEN FOR 50 MG BID PTS SON STATES PT TAKES 50 MG IN THE MORNING AND 37.5 MG IN THE EVENING- PT JUST STARTED 81 MG ASP
--- NOTE | 2023-08-01 07:49 | PC.NURSE ---
awake , resting quietly at this time moves all extremities no c/o pain has some confusion speech clear no vision changes noted is unable to void bladder scan 400cc inserted dias at this time . multiple bruises noted on body iv infusing
[2023-08-01 08:34] LABS: Troponin 5 2HR 8.45 ng/L (0-10)
[2023-08-01 09:15] LABS: Troponin 5 2HR Delta -2.55 ABS# (0-10)
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
--- NOTE | 2023-08-01 12:02 | PC.NURSE ---
Josselin Meredith ([id number]) and Teodoro Sanchez ([phone]) also here voicing concern home situation and care listed Brother Raymond Tillman ([phone])
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
[2023-08-01 12:49] LABS: Troponin 5 6HR 10.49 ng/L (0-10)
[2023-08-01 12:54] LABS: Troponin 5 6HR Delta -0.51 ng/L (0-12)
--- NOTE | 2023-08-01 13:00 | CTR_ITS ---
PROCEDURE INFORMATION: Exam: CT Head Without Contrast Exam date and time: 08/01/2023 1:32 PM Age: 83 years old Clinical indication: Abnormal findings; Abnormal radiologic findings of head/skull; Not specified; Additional info: Multiple air pockets TECHNIQUE: Imaging protocol: Computed tomography of the head without contrast. Axial, coronal and sagittal reformatted images were created and reviewed. Radiation optimization: All CT scans at this facility use at least one of these dose optimization techniques: automated exposure control; mA and/or kV adjustment per patient size (includes targeted exams where dose is matched to clinical indication); or iterative reconstruction. COMPARISON: CT head wo con* [id number] 08/01/2023 2:23 AM RADIATION DOSE METRICS: Total DLP (mGy-cm): 1003.58 FINDINGS: Brain: Patchy areas of hypoattenuation in the periventricular and subcortical white matter, consistent with chronic small vessel ischemic disease. No CT evidence of acute intracranial hemorrhage or acute territorial infarction. No significant mass effect or midline shift. Basal cisterns patent. Cerebral ventricles: Prominence of the cortical sulci, cisterns and ventricular system, consistent with cerebral and cerebellar volume loss. Paranasal sinuses: Unremarkable. No fluid levels. Mastoid air cells: Partial opacification and sclerosis of the mastoid air cells. Bones: Unremarkable. No acute fracture. Soft tissues: Grossly unremarkable. Vasculature: Calcific atherosclerotic disease in the cavernous internal carotid arteries. CT/CT head wo con* [id number]: 1[address] No CT evidence of acute intracranial pathology. 2. Additional findings, as above.
--- NOTE | 2023-08-01 14:52 | PC.NURSE ---
Addendum entered by Babatunde Dorsey RN 08/01/23 15:09: Conversation about patients wishes witnessed by this nurse. Original Note: son and [id number]-izu sushant and luigi here to visit with christiano pt became tearful while talking with them was eating and stopped when they came in me and other Rn talked with pt after they had left remained upset asked if she wanted them to visit and she related they were going to find out anyway but was very good with viky and marcelo visiting . Removed tray from room pt not eat any more.
--- NOTE | 2023-08-01 15:09 | PC.NURSE ---
2 live ticks removed from pt .. susan care done
[2023-08-01] MEDS: cefTRIAXone 1,000 MG in sodium chloride 0.9% (plus) 50 ML 100 MG IV (22:29)
[2023-08-02] VITALS (13 sets, daily range): BP systolic 109–142; BP diastolic 51–76; PULSE 60–68; RESP 12–19; TEMP 36.3–36.6; O2SAT 93–99
[2023-08-02] MEDS: enoxaparin 40 mg/0.4 mL Syringe SUBCUT (00:44)
[2023-08-02 04:42] LABS: Basophils % 0.7 %; Eosinophils # 0.1 10^3/uL (0.0-0.8); Eosinophils % 3.2 %; Hematocrit 38.8 % (36-47); Lymphocytes % 25.4 %; Mean Corpuscular HGB Conc 30.9 g/dL (30-55); Mean Corpuscular Hemoglobin 34.1 pg (27-33); Mean Corpuscular Volume 110.2 fl (85-98); Mean Platelet Volume 11.3 fL (7.4-10.4); Monocytes # 0.4 10^3/uL (0.2-0.9); Neutrophils # 2.46 10^3/uL (1.8-7.7); Neutrophils % 61.5 %; Nucleated Red Blood Cells % 0 %; Platelet Count 125 10^3/cmm (157-399); Red Blood Count 3.52 10^6/uL (3.85-5.65); Red Cell Distribution Width 13.1 % (12.1-15.1); White Blood Count 4.01 10^3/uL (3.29-11.43)
[2023-08-02 05:03] LABS: Magnesium 1.9 mg/dL (1.7-2.3)
[2023-08-02 05:05] LABS: Anion Gap 12.8 (5-19); Blood Urea Nitrogen 19 mg/dL (8-23); Calcium 8.3 mg/dL (8.5-10.5); Carbon Dioxide 23 mmol/L (22-29); Chloride 110 mmol/L (98-107); Creatinine Clr Calc Pharmacy 46.2815; Glucose 89 mg/dL (65-115); Osmolality Calculated 296 mOsm/kg (285-295); Potassium 3.8 mmol/L (3.5-5.1); Sodium 142 mmol/L (136-145)
[2023-08-02] MEDS: levothyroxine 75 mcg Tablet PO (05:18)
[2023-08-02 05:25] LABS: Thyroid Stimulating Hormone 0.07 uIU/mL (0.27-4.20)
--- NOTE | 2023-08-02 09:56 | P.PN_ITS ---
Subjective 2 Subjective: Can be transferred out of ICU Stable No significant overnight events Tolerating diet Can remove Rangel catheter To work with PT Will talk with the family Vitals/I&O/Wt Last Vital Signs Temp 97.4 F L 08/02/23 05:49 Pulse 65 08/02/23 08:46 Resp 13 08/02/23 05:00 BP 121/56 08/02/23 05:00 Pulse Ox 99 08/02/23 08:46 O2 Del Method Room Air 08/02/23 08:46 08/01/23 08/02/23 08/02/23 22:59 06:59 14:59 Intake Total 350 / 1350 50 / 1400 Output Total 1200 / 1200 425 / 1625 Balance -850 / 150 -375 / -225 Weight last 48 hrs Weight 64.047 kg Weight 63.957 kg Weight 63.957 kg Weight 70.76 kg Physical Exam 2 Narrative: Multiple bruises all over her body GCS 15 Nonfocal neuroexam S1, S2 Hemodynamically stable Afebrile Rangel catheter in place Urinary Catheter Management: Rangel: Cath Placed During This Visit: yes Reason for Continuing Indwelling Catheter: Acute Urinary Retention or Obstruction Urinary Catheter Date of Insertion: 08/01/23 Urinary Catheter Time of Insertion: 10:00 Data 08/02/23 03:47 08/02/23 03:47 Micro: Microbiology 08/01/23 00:00 Blood Culture - Preliminary Blood NEGATIVE TO DATE 08/01/23 00:00 Blood Culture - Preliminary Blood NEGATIVE TO DATE A&P Assessment and plan (1) DINO (generalized anxiety disorder): (2) Essential hypertension: (3) Abnormal EKG: (4) Chronic atrial fibrillation: (5) Presence of permanent cardiac pacemaker: (6) Hypothyroid: Qualifiers: Hypothyroidism type: acquired Qualified Code(s): E03.9 - Hypothyroidism, unspecified (7) UTI (urinary tract infection): (8) Accidental medication overdose: Plan No active homicidal suicidal ideation Unintentional drug overdose Hemodynamic stable Can transfer out of ICU to [facility] Patient does not have safe home condition to return, will talk with the family as well Requested case management support as well Patient is DNI/DNI Hemodynamically stable Patient has a pacemaker heart rate is around 60s, paced rhythm Hemodynamic stable No arrhythmias Patient is 48 lethargic multiple bruises, multiple falls Request PT evaluation Nonfocal neuroexam and head CT unremarkable Air in venous system on imaging noted Continue cardiac diet Patient has been hotlined DVT prophylaxis on board No signs of encephalopathy, UTI: Improving, continue antibiotic Attestations 2 Medical Necessity Statement*: Transfer out of ICU Diagnoses DINO (generalized anxiety disorder) F41.1 Essential hypertension I10 Abnormal EKG R94.31 Chronic atrial fibrillation I48.20 Presence of permanent cardiac pacemaker Z95.0 Acquired hypothyroidism E03.9 Hypothyroidism type: acquired UTI (urinary tract infection) N39.0 Accidental medication overdose T50.902C
[2023-08-02] MEDS: pantoprazole DR 40 mg Tablet PO (10:55)
--- NOTE | 2023-08-02 11:24 | PC.SOCIAL ---
IMM Update Pg. 2 of IMM updated and reviewed with patient, who verbalized understanding. Copy provided.
[2023-08-03] VITALS (7 sets, daily range): BP systolic 118–160; BP diastolic 66–81; PULSE 63–72; RESP 16–19; TEMP 36.4–36.8; O2SAT 93–100
[2023-08-03] MEDS: cefTRIAXone 1,000 MG in sodium chloride 0.9% (plus) 50 ML 100 MG IV ×2 (00:46→23:40)
[2023-08-03] MEDS: enoxaparin 40 mg/0.4 mL Syringe SUBCUT (00:47)
[2023-08-03 04:37] LABS: Bacillus cereus group Not Detected (NOT DETECT); Bacillus subtillis group Not Detected (NOT DETECT); Corynebacterium Not Detected (NOT DETECT); Cutibacterium acnes (P.acnes) Not Detected (NOT DETECT); Enterococcus Not Detected (NOT DETECT); Enterococcus faecalis Not Detected (NOT DETECT); Enterococcus faecium Not Detected (NOT DETECT); Lactobacillus species Not Detected (NOT DETECT); Listeria Not Detected (NOT DETECT); Listeria monocytogenes Not Detected (NOT DETECT); Micrococcus Not Detected (NOT DETECT); Pan Candida Not Detected (NOT DETECT); Pan Gram-Negative Not Detected (NOT DETECT); Staphylococcus epidermidis Not Detected (NOT DETECT); Staphylococcus lugdunensis Not Detected (NOT DETECT); Staphylococcus species Not Detected (NOT DETECT); Streptococcus agalactiae Not Detected (NOT DETECT); Streptococcus anginosus group Not Detected (NOT DETECT); Streptococcus pneumoniae Not Detected (NOT DETECT); Streptococcus pyogenes Not Detected (NOT DETECT); Streptococcus species Not Detected (NOT DETECT)
[2023-08-03 05:28] LABS: Basophils % 0.4 %; Eosinophils # 0.2 10^3/uL (0.0-0.8); Eosinophils % 3.7 %; Hematocrit 36.6 % (36-47); Lymphocytes # 1.1 10^3/uL (0.8-4.8); Lymphocytes % 23.9 %; Mean Corpuscular HGB Conc 32.5 g/dL (30-55); Mean Corpuscular Hemoglobin 33.9 pg (27-33); Mean Corpuscular Volume 104.3 fl (85-98); Mean Platelet Volume 11.2 fL (7.4-10.4); Monocytes # 0.4 10^3/uL (0.2-0.9); Monocytes % 9.3 %; Neutrophils # 2.88 10^3/uL (1.8-7.7); Neutrophils % 62.7 %; Nucleated Red Blood Cells % 0 %; Platelet Count 141 10^3/cmm (157-399); Red Blood Count 3.51 10^6/uL (3.85-5.65)
[2023-08-03 05:53] LABS: Anion Gap 12.6 (5-19); Blood Urea Nitrogen 13 mg/dL (8-23); Calcium 8.9 mg/dL (8.5-10.5); Carbon Dioxide 25 mmol/L (22-29); Chloride 109 mmol/L (98-107); Creatinine Clr Calc Pharmacy 47.6619; Glucose 106 mg/dL (65-115); Osmolality Calculated 297 mOsm/kg (285-295); Potassium 3.6 mmol/L (3.5-5.1); Sodium 143 mmol/L (136-145)
[2023-08-03] MEDS: levothyroxine 75 mcg Tablet PO (06:01)
[2023-08-03] MEDS: pantoprazole DR 40 mg Tablet PO (08:30)
--- NOTE | 2023-08-03 11:32 | P.PN_ITS ---
Subjective 2 Subjective: Spoke with the daughter who is at the bedside today She preferred that she lives with her niece's but if that does not work out they might be okay with short-term assisted placement until her home condition have improved, patient is wanting her son to move to another house which is in [place] but does not want to live with him in the same house in [place] at this point, however she does not want him to become homeless that is what she is offering her another house in [place] Vitals/I&O/Wt Last Vital Signs Temp 98.3 F 08/03/23 07:22 Pulse 65 08/03/23 07:22 Resp 17 08/03/23 07:22 BP 126/66 08/03/23 07:22 Pulse Ox 94 08/03/23 07:22 O2 Del Method Room Air 08/03/23 07:22 08/02/23 08/03/23 08/03/23 22:59 06:59 14:59 Intake Total 50 / 50 Output Total 240 / 240 Balance -240 / -240 50 / -190 Weight last 48 hrs Weight 68.209 kg Weight 64.047 kg Physical Exam 2 Narrative: Pleasant cooperative Nonfocal Abdomen soft Pleasant cooperative Signs of dehydration improving GCS 15 Awake and alert Urinary Catheter Management: Rangel: Cath Placed During This Visit: yes Reason for Continuing Indwelling Catheter: Acute Urinary Retention or Obstruction Urinary Catheter Date of Insertion: 08/01/23 Urinary Catheter Time of Insertion: 10:00 Data 08/03/23 04:35 08/03/23 04:35 Micro: Microbiology 07/31/23 22:13 Urine Culture - Preliminary Urine,Clean Catch Gram Negative Rods 08/01/23 00:00 Blood Culture - Preliminary Blood Corynebacterium Species A&P Assessment and plan (1) DINO (generalized anxiety disorder): (2) Essential hypertension: (3) Chronic atrial fibrillation: (4) Presence of permanent cardiac pacemaker: (5) UTI (urinary tract infection): (6) Sore throat: (7) Accidental medication overdose: Plan Patient medically is doing well I will gradually add her home medications She is DNI/9 Had extensive discussion with her daughter We are working with discharge planners, DFS at the bedside as well talking with the patient Patient hemodynamically doing very well She is medically cleared to be discharged once we get appropriate disposition plan Attestations 2 Medical Necessity Statement*: Continue medical management Diagnoses DINO (generalized anxiety disorder) F41.1 Essential hypertension I10 Chronic atrial fibrillation I48.20 Presence of permanent cardiac pacemaker Z95.0 UTI (urinary tract infection) N39.0 Sore throat J02.9 Accidental medication overdose T50.902A
[2023-08-03] MEDS: metoprolol tartrate 25 mg Tablet PO (20:42)
[2023-08-04] VITALS: BP 133/73; PULSE 64; RESP 18; TEMP 36.4; O2SAT 95
[2023-08-04] MEDS: enoxaparin 40 mg/0.4 mL Syringe SUBCUT (00:15)
[2023-08-04 04:00] VITALS: BP 120/63; PULSE 65; RESP 16; TEMP 36.4; O2SAT 94
[2023-08-04 04:17] VITALS: BMI 26.9
[2023-08-04] MEDS: levothyroxine 75 mcg Tablet PO (05:53)
[2023-08-04 06:00] VITALS: PULSE 63
[2023-08-04 07:17] VITALS: BP 122/71; PULSE 60; RESP 16; TEMP 36.5; O2SAT 96
[2023-08-04] MEDS: metoprolol tartrate 25 mg Tablet PO (08:39)
[2023-08-04] MEDS: pantoprazole DR 40 mg Tablet PO (08:39)
[2023-08-04] MEDS: aspirin 81 mg EC Tablet PO (08:39)
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
--- NOTE | 2023-08-04 11:49 | PC.SOCIAL ---
IMM Update pg 2 of IMM updated and reviewed w/ patient. Copy provided and copy dated, initialed and placed in chart.
[2023-08-04 12:18] VITALS: BP 122/71; PULSE 60; RESP 16; TEMP 36.5; O2SAT 96
== END 2023-08-04 12:19 | disposition home health service (06) | DRG 918 ==
LOC: ER 23:53 → ICU 23:59 → MEDSURG 08-02 11:32
PROVIDERS: Admitting Provider Family Medicine; Emergency Provider Emergency Medicine; Visit Provider Internal Medicine
DX: T50.911A Poisoning by multiple unspecified drugs, medicaments and biological substances, accidental (unintentional), initial encounter (principal); N39.0 Urinary tract infection, site not specified; I48.20 Chronic atrial fibrillation, unspecified; Y99.9 Unspecified external cause status; F41.1 Generalized anxiety disorder; I11.0 Hypertensive heart disease with heart failure; I50.9 Heart failure, unspecified; Z95.0 Presence of cardiac pacemaker; R29.6 Repeated falls; R07.81 Pleurodynia; E03.9 Hypothyroidism, unspecified
CPT/HCPCS: 36415; 36416; 51702; 70450; 70486; 71045; 71100; 71250; 72125; 73521; 80048; 80053; 80306; 80307; 81001; 82962; 83605; 83735; 84439; 84443; 84481; 84484; 85025; 85610; 85730; 87040; 87077; 87086; 87150; 87186; 87205; 93005; 94664; 96365; 96372; 96374; 96376; 97110; 97116; 97161; 97530; 99285; C9113; J0696; J1650; J7030; J7040

== ENCOUNTER 2023-08-11 15:43 | Outpatient (CLI) | payer MEDICARE, SELFPAY ==
[2023-08-11 16:52] LABS: Add Urine Microscopic? YES; Bacteria Urine TRACE /hpf; Bilirubin Urine Neg (Negative); Blood Urine 2+ (Negative); Calcium Oxalate Crystals Urine 0-4 /hpf; Glucose Urine UA Norm (Normal); Ketones Urine Negative (Negative); Leukocyte Esterase Urine Trace (Negative); Mucus Urine 1+ /hpf; Nitrate Urine Negative (Negative); Protein Urine Neg (Negative); RBC Urine 0-4 /hpf (0-2); Specific Gravity, Urine 1.025 (1.005-1.030); Urine Appearance Clear (CLEAR); Urine Color Yellow (Yellow); Urobilinogen Urine 1 mg/dL (Negative); pH Urine 5 (5-7)
== END 2023-08-11 15:44 | disposition home or self-care (01) ==
LOC: LAB 15:48
PROVIDERS: PCP Internal Medicine; Visit Provider Internal Medicine
DX: N39.0 Urinary tract infection, site not specified (principal)
CPT/HCPCS: 81001